=== PATIENT | female | born 1940 | race Caucasian/White ===

== ENCOUNTER 2017-10-28 10:28 | Inpatient (IN) ==
[2017-10-28] MEDS ORDERED: ACETAMINOPHEN 325 MG TABLET PO PRN (12:02)
[2017-10-28] MEDS ORDERED: NALOXONE 0.4 MG/ML VIAL IV PRN (12:02)
[2017-10-28] MEDS ORDERED: ONDANSETRON 4 MG/2 ML VIAL IV PRN (12:02)
[2017-10-28] MEDS ORDERED: HYDROmorphone 2 MG/1 ML VIAL IV PRN (12:02)
[2017-10-28 13:06] LABS: Basophils # 0.1 10*3/uL (0.0-0.2); Basophils % 1.2 % (0.0-0.8); Eosinophils # 0.3 10*3/uL (0.0-0.87); Eosinophils % 4.5 % (0.00-10.9); Hematocrit 41.8 VOL% (35.7-47.0); Hemoglobin 13.5 GM/DL (12.0-16.0); Immature Granulocytes % 0.8 %; Immature Granulocytes Absolute 0.06 #; Lymphocytes # 1.5 10*3/uL (1.4-4.0); Lymphocytes % 19.6 % (21.3-54.2); Mean Corpuscular HGB Conc 32.3 GM/DL (32-36); Mean Corpuscular Hemoglobin 30 PG (27-34); Mean Corpuscular Volume 93.3 FL (87-102); Mean Platelet Volume 9.9 FL (9.6-12.0); Monocytes # 0.5 10*3/uL (0.11-0.8); Monocytes % 6.6 % (1.7-12.7); Neutrophils # 5.1 10*3/uL (1.4-7.4); Neutrophils % 67.3 % (38.7-73.9); Platelet Count 382 T/CUMM (130-400); Red Blood Count 4.48 MC/CUMM (3.8-5.5); Red Cell Distribution Width 13.7 % (9.3-17.3); White Blood Count 7.6 T/CUMM (4-12)
[2017-10-28] MEDS: SODIUM CHLORIDE 0.45% 1,000 ML IV SCH (13:27)
[2017-10-28 13:35] LABS: Albumin 2.6 G/DL (3.4-5.0); Bilirubin,Total 1.7 MG/DL (0.2-1.0); Calcium 8.9 MG/DL (8.5-10.1); Osmolality,Calculated 281.3 MOS/KG (273-304); Potassium 3.7 MMOL/L (3.5-5.1); Total Protein 7.1 G/DL (6.4-8.3)
[2017-10-28 13:45] LABS: Albumin 2.6 G/DL (3.4-5.0); Bilirubin,Direct 1.42 MG/DL (0.0-0.20); Bilirubin,Indirect 0.4 MG/DL (0.0-1.0); Bilirubin,Total 1.8 MG/DL (0.2-1.0); Total Protein 7.2 G/DL (6.4-8.3)
[2017-10-28 13:52] LABS: INR 4.4
[2017-10-28 14:01] LABS: PT Patient Result 44.2 SECS; Partial Thromboplastin Time 46.8 SECS (0-40)
[2017-10-28 16:51] LABS: Apearance,Urine Slightly Hazy (Clear); Bilirubin,Urine Negative (Negative); Blood, Urine Small mg/dL (Negative); Glucose,Urine (UA) Negative (Negative); Ketones,Urine Negative (Negative); Mucus,Urine Occasional /LPF (Occasional); Nitrite,Urine Negative (Negative); Protein,Urine 30 MG/DL; RBC,Urine 3 /HPF (0-4); Squamous Epithelial Cell,Urine Occasional /HPF (0-10); Urine Color Amber (Yellow); Urine Specific Gravity 1.018 (1.001-1.035); WBC,Urine 19 /HPF (0-6)
[2017-10-28] MEDS: cefTRIAXone 1,000 MG in SYRINGE 1 EACH IV SCH (17:16)
[2017-10-28] MEDS: CARVEDILOL 6.25 MG TABLET PO SCH (17:16)
[2017-10-28] MEDS ORDERED: DONEPEZIL 10 MG TABLET PO SCH (18:00)
[2017-10-28] MEDS: DOCUSATE SODIUM 100 MG CAPSULE PO SCH (21:06)
[2017-10-29] MEDS: SODIUM CHLORIDE 0.45% 1,000 ML IV SCH ×3 (00:02→23:40)
[2017-10-29 06:31] LABS: INR 3.4
[2017-10-29 06:37] LABS: PT Patient Result 34.1 SECS
[2017-10-29 06:44] LABS: Albumin 2.1 G/DL (3.4-5.0); Bilirubin,Direct 0.97 MG/DL (0.0-0.20); Bilirubin,Indirect 0.6 MG/DL (0.0-1.0); Bilirubin,Total 1.6 MG/DL (0.2-1.0); Total Protein 5.9 G/DL (6.4-8.3)
[2017-10-29 06:45] LABS: Risk Ratio 5.77; VLDL CHOLESTEROL 30.2 MG/DL
[2017-10-29] MEDS: AZITHROMYCIN INJ 500 MG in SODIUM CHLORIDE 0.9% 250 ML IV SCH (09:18)
[2017-10-29] MEDS: CARVEDILOL 6.25 MG TABLET PO SCH ×2 (09:20→17:04)
[2017-10-29] MEDS: OXYBUTYNIN XL 5 MG TABLET PO SCH (09:20)
[2017-10-29] MEDS: PANTOPRAZOLE 40 MG VIAL IV SCH (09:20)
[2017-10-29] MEDS: amLODIPine 5 MG TABLET PO SCH (09:20)
[2017-10-29] MEDS: MULTIVITAMIN (CENTRUM) TABLET PO SCH (09:20)
[2017-10-29] MEDS: DOCUSATE SODIUM 100 MG CAPSULE PO SCH ×2 (09:20→20:26)
[2017-10-29] MEDS: cefTRIAXone 1,000 MG in SYRINGE 1 EACH IV SCH (20:27)
[2017-10-30 05:31] LABS: Basophils # 0.1 10*3/uL (0.0-0.2); Basophils % 1.7 % (0.0-0.8); Eosinophils # 0.2 10*3/uL (0.0-0.87); Eosinophils % 4.1 % (0.00-10.9); Hematocrit 36.5 VOL% (35.7-47.0); Hemoglobin 11.8 GM/DL (12.0-16.0); Immature Granulocytes % 1.2 %; Immature Granulocytes Absolute 0.07 #; Lymphocytes # 1.5 10*3/uL (1.4-4.0); Lymphocytes % 26.6 % (21.3-54.2); Mean Corpuscular HGB Conc 32.3 GM/DL (32-36); Mean Corpuscular Hemoglobin 30 PG (27-34); Mean Corpuscular Volume 92.9 FL (87-102); Mean Platelet Volume 10.2 FL (9.6-12.0); Monocytes # 0.4 10*3/uL (0.11-0.8); Monocytes % 7.4 % (1.7-12.7); Neutrophils # 3.4 10*3/uL (1.4-7.4); Platelet Count 336 T/CUMM (130-400); Red Blood Count 3.93 MC/CUMM (3.8-5.5); Red Cell Distribution Width 13.4 % (9.3-17.3); White Blood Count 5.8 T/CUMM (4-12)
[2017-10-30 05:40] LABS: PT Patient Result 30.2 SECS
[2017-10-30 06:20] LABS: Albumin 2.2 G/DL (3.4-5.0); Bilirubin,Direct 0.77 MG/DL (0.0-0.20); Bilirubin,Indirect 0.6 MG/DL (0.0-1.0); Bilirubin,Total 1.4 MG/DL (0.2-1.0); Calcium 8.3 MG/DL (8.5-10.1); Potassium 3.8 MMOL/L (3.5-5.1); Total Protein 5.6 G/DL (6.4-8.3)
[2017-10-30] MEDS: DOCUSATE SODIUM 100 MG CAPSULE PO SCH (09:04)
[2017-10-30] MEDS: PANTOPRAZOLE 40 MG VIAL IV SCH (09:04)
[2017-10-30] MEDS: CARVEDILOL 6.25 MG TABLET PO SCH (09:04)
[2017-10-30] MEDS: OXYBUTYNIN XL 5 MG TABLET PO SCH (09:04)
[2017-10-30] MEDS: amLODIPine 5 MG TABLET PO SCH (09:04)
[2017-10-30] MEDS: MULTIVITAMIN (CENTRUM) TABLET PO SCH (09:04)
[2017-10-30] MEDS: AZITHROMYCIN INJ 500 MG in SODIUM CHLORIDE 0.9% 250 ML IV SCH (09:08)
[2017-10-30] MEDS: SODIUM CHLORIDE 0.45% 1,000 ML IV SCH (10:42)
[2017-10-30 12:03] VITALS: BP 136/73
== END 2017-10-30 14:05 | disposition home health service (06) | DRG 444 ==
LOC: N.2E 12:16
PROVIDERS: ADMIT Family Medicine; ATTEND Family Medicine

== ENCOUNTER 2017-11-05 10:05 | Inpatient (IN) ==
[2017-11-05] MEDS ORDERED: fentaNYL 100 MCG/2 ML VIAL ONE (10:11)
[2017-11-05] MEDS ORDERED: KETAMINE 500 MG/10 ML VIAL ONE (10:11)
[2017-11-05] MEDS ORDERED: MIDAZOLAM 2 MG/2 ML VIAL ONE (10:12)
[2017-11-05] MEDS ORDERED: ONDANSETRON 4 MG/2 ML VIAL IV PRN ×2 (10:39→14:31)
[2017-11-05] MEDS ORDERED: SODIUM CHLORIDE 0.9% 1,000 ML IV SCH (11:00)
[2017-11-05 11:12] LABS: Basophils # 0.1 10*3/uL (0.0-0.2); Basophils % 1.5 % (0.0-0.8); Eosinophils # 0.3 10*3/uL (0.0-0.87); Eosinophils % 3.7 % (0.00-10.9); Hematocrit 40.4 VOL% (35.7-47.0); Hemoglobin 12.8 GM/DL (12.0-16.0); Immature Granulocytes % 0.6 %; Immature Granulocytes Absolute 0.04 #; Lymphocytes % 27.2 % (21.3-54.2); Mean Corpuscular HGB Conc 31.7 GM/DL (32-36); Mean Corpuscular Hemoglobin 30 PG (27-34); Mean Corpuscular Volume 93.5 FL (87-102); Mean Platelet Volume 9.6 FL (9.6-12.0); Monocytes # 0.4 10*3/uL (0.11-0.8); Monocytes % 6.1 % (1.7-12.7); Neutrophils # 4.4 10*3/uL (1.4-7.4); Neutrophils % 60.9 % (38.7-73.9); Platelet Count 388 T/CUMM (130-400); Red Blood Count 4.32 MC/CUMM (3.8-5.5); Red Cell Distribution Width 13.7 % (9.3-17.3); White Blood Count 7.2 T/CUMM (4-12)
[2017-11-05 11:25] LABS: INR 1.3; PT Patient Result 13.7 SECS; Partial Thromboplastin Time 27.9 SECS (0-40)
[2017-11-05] MEDS ORDERED: ALBUTEROL/IPRATROPIUM 3 ML NEB RESP TX ONE (13:15)
[2017-11-05] MEDS ORDERED: ACETAMINOPHEN 325 MG TABLET PO PRN (14:31)
[2017-11-05] MEDS ORDERED: PROMETHAZINE 25 MG/1 ML VIAL IM PRN (14:31)
[2017-11-05] MEDS ORDERED: ALBUTEROL/IPRATROPIUM 3 ML NEB RESP TX PRN (14:31)
[2017-11-05] MEDS: LACTATED RINGERS 1,000 ML IV SCH ×2 (14:47→22:38)
[2017-11-05] MEDS: cefOXitin 2,000 MG in SYRINGE 1 EACH IV SCH ×3 (16:13→22:34)
[2017-11-05] MEDS: SIMVASTATIN 20 MG TABLET PO SCH (17:50)
[2017-11-05] MEDS: DONEPEZIL 10 MG TABLET PO SCH (17:50)
[2017-11-05] MEDS: CARVEDILOL 6.25 MG TABLET PO SCH (20:38)
[2017-11-06] MEDS: cefOXitin 2,000 MG in SYRINGE 1 EACH IV SCH ×4 (04:30→22:18)
[2017-11-06] MEDS ORDERED: cefOXitin 2,000 MG in SYRINGE 1 EACH IV ONE (06:30)
[2017-11-06 06:54] LABS: Basophils # 0.1 10*3/uL (0.0-0.2); Basophils % 1.4 % (0.0-0.8); Eosinophils # 0.3 10*3/uL (0.0-0.87); Eosinophils % 3.5 % (0.00-10.9); Hematocrit 39.4 VOL% (35.7-47.0); Hemoglobin 12.9 GM/DL (12.0-16.0); Immature Granulocytes % 0.5 %; Immature Granulocytes Absolute 0.04 #; Lymphocytes # 1.9 10*3/uL (1.4-4.0); Lymphocytes % 22.4 % (21.3-54.2); Mean Corpuscular HGB Conc 32.7 GM/DL (32-36); Mean Corpuscular Hemoglobin 30 PG (27-34); Mean Corpuscular Volume 91.6 FL (87-102); Mean Platelet Volume 10.1 FL (9.6-12.0); Monocytes # 0.6 10*3/uL (0.11-0.8); Monocytes % 7.3 % (1.7-12.7); Neutrophils # 5.5 10*3/uL (1.4-7.4); Neutrophils % 64.9 % (38.7-73.9); Platelet Count 368 T/CUMM (130-400); Red Cell Distribution Width 13.5 % (9.3-17.3); White Blood Count 8.5 T/CUMM (4-12)
[2017-11-06 07:01] LABS: INR 1.2; PT Patient Result 12.9 SECS; Partial Thromboplastin Time 26.1 SECS (0-40)
[2017-11-06 07:30] LABS: Albumin 2.5 G/DL (3.4-5.0); Bilirubin,Total 1.1 MG/DL (0.2-1.0); Calcium 8.9 MG/DL (8.5-10.1); Osmolality,Calculated 284.7 MOS/KG (273-304); Potassium 4.2 MMOL/L (3.5-5.1); Total Protein 6.1 G/DL (6.4-8.3)
[2017-11-06] MEDS: CARVEDILOL 6.25 MG TABLET PO SCH ×2 (07:40→16:52)
[2017-11-06] MEDS: LACTATED RINGERS 1,000 ML IV SCH ×3 (07:40→22:19)
[2017-11-06] MEDS: OXYBUTYNIN XL 5 MG TABLET PO SCH (07:40)
[2017-11-06] MEDS: PANTOPRAZOLE 40 MG TABLET PO SCH (07:40)
[2017-11-06] MEDS: MULTIVITAMIN (CENTRUM) TABLET PO SCH (07:40)
[2017-11-06] MEDS: amLODIPine 5 MG TABLET PO SCH (07:40)
[2017-11-06] MEDS ORDERED: PANTOPRAZOLE 40 MG TABLET PO SCH (09:00)
[2017-11-06] MEDS ORDERED: TISSUE ADHESIVE 1 EACH APPLICATOR TOP ONE (10:06)
[2017-11-06] MEDS ORDERED: SUGAMMADEX 200 MG/2 ML VIAL IV ONE (10:32)
[2017-11-06] MEDS ORDERED: HYDROmorphone 2 MG/1 ML VIAL ONE (10:49)
[2017-11-06] MEDS ORDERED: ONDANSETRON 4 MG/2 ML VIAL ONE ×2 (10:49→10:56)
[2017-11-06] MEDS: HYDROmorphone 2 MG/1 ML VIAL IV PRN ×4 (10:50→23:45)
[2017-11-06] MEDS ORDERED: PROPOFOL 200 MG/20 ML VIAL IV ONE ×2 (10:55→11:11)
[2017-11-06] MEDS ORDERED: LABETALOL 20 MG/4 ML SYRINGE IV ONE (10:55)
[2017-11-06] MEDS ORDERED: KETOROLAC 30 MG/1 ML VIAL ONE (10:56)
[2017-11-06] MEDS ORDERED: SEVOFLURANE 1 UNIT/15 MINUTE INH ONE (10:56)
[2017-11-06] MEDS ORDERED: ESMOLOL 100 MG/10 ML VIAL IV ONE (10:56)
[2017-11-06] MEDS ORDERED: fentaNYL 100 MCG/2 ML VIAL ONE (10:56)
[2017-11-06] MEDS ORDERED: ACETAMINOPHEN 1,000 MG/100 ML VIAL IV ONE (10:56)
[2017-11-06] MEDS ORDERED: SUCCINYLCHOLINE 200 MG/10 ML VIAL ONE (10:57)
[2017-11-06] MEDS ORDERED: ROCURONIUM 100 MG/10 ML VIAL IV ONE (10:57)
[2017-11-06] MEDS ORDERED: LABETALOL 100 MG/20 ML VIAL IV ONE (10:57)
[2017-11-06] MEDS ORDERED: ONDANSETRON 4 MG/2 ML VIAL IV PRN (11:01)
[2017-11-06] MEDS ORDERED: LIDOCAINE 2% 5 ML VIAL ONE (11:11)
[2017-11-06] MEDS: SIMVASTATIN 20 MG TABLET PO SCH (17:06)
[2017-11-06] MEDS: DONEPEZIL 10 MG TABLET PO SCH (17:06)
[2017-11-06 18:41] LABS: Basophils # 0.1 10*3/uL (0.0-0.2); Basophils % 0.5 % (0.0-0.8); Eosinophils # 0.1 10*3/uL (0.0-0.87); Eosinophils % 0.3 % (0.00-10.9); Hemoglobin 12.2 GM/DL (12.0-16.0); Immature Granulocytes % 0.4 %; Immature Granulocytes Absolute 0.06 #; Lymphocytes # 1.4 10*3/uL (1.4-4.0); Lymphocytes % 9.2 % (21.3-54.2); Mean Corpuscular HGB Conc 32.1 GM/DL (32-36); Mean Corpuscular Hemoglobin 31 PG (27-34); Mean Platelet Volume 9.5 FL (9.6-12.0); Monocytes # 0.9 10*3/uL (0.11-0.8); Monocytes % 6.1 % (1.7-12.7); Neutrophils # 12.3 10*3/uL (1.4-7.4); Neutrophils % 83.5 % (38.7-73.9); Platelet Count 301 T/CUMM (130-400); Red Cell Distribution Width 13.4 % (9.3-17.3); White Blood Count 14.8 T/CUMM (4-12)
[2017-11-06 18:59] LABS: Calcium 8.5 MG/DL (8.5-10.1); Osmolality,Calculated 281.1 MOS/KG (273-304); Potassium 4.3 MMOL/L (3.5-5.1)
[2017-11-06 19:03] LABS: Troponin I Only < 0.015 NG/ML (0.00-0.045)
[2017-11-06] MEDS ORDERED: SODIUM CHLORIDE 0.9% 1,000 ML IV ONE (19:24)
[2017-11-06] MEDS ORDERED: ENOXAPARIN 80 MG/0.8 ML SYRINGE SUBCUT SCH (21:00)
[2017-11-06 21:46] LABS: Troponin I Only < 0.015 NG/ML (0.00-0.045)
[2017-11-06] MEDS: ENOXAPARIN 80 MG/0.8 ML SYRINGE SUBCUT SCH (22:15)
[2017-11-07 00:30] LABS: Troponin I Only < 0.015 NG/ML (0.00-0.045)
[2017-11-07] MEDS: cefOXitin 2,000 MG in SYRINGE 1 EACH IV SCH ×4 (05:01→22:28)
[2017-11-07] MEDS: HYDROmorphone 2 MG/1 ML VIAL IV PRN ×2 (05:01→22:55)
[2017-11-07 05:18] LABS: Basophils # 0.1 10*3/uL (0.0-0.2); Basophils % 0.6 % (0.0-0.8); Eosinophils # 0.1 10*3/uL (0.0-0.87); Eosinophils % 0.8 % (0.00-10.9); Hematocrit 35.4 VOL% (35.7-47.0); Hemoglobin 11.7 GM/DL (12.0-16.0); Immature Granulocytes % 0.6 %; Immature Granulocytes Absolute 0.09 #; Lymphocytes # 1.2 10*3/uL (1.4-4.0); Lymphocytes % 7.2 % (21.3-54.2); Mean Corpuscular HGB Conc 33.1 GM/DL (32-36); Mean Corpuscular Hemoglobin 31 PG (27-34); Mean Corpuscular Volume 92.4 FL (87-102); Mean Platelet Volume 10.1 FL (9.6-12.0); Monocytes # 1.4 10*3/uL (0.11-0.8); Monocytes % 8.5 % (1.7-12.7); Neutrophils # 13.2 10*3/uL (1.4-7.4); Neutrophils % 82.3 % (38.7-73.9); Platelet Count 270 T/CUMM (130-400); Red Blood Count 3.83 MC/CUMM (3.8-5.5); Red Cell Distribution Width 13.7 % (9.3-17.3); White Blood Count 16.1 T/CUMM (4-12)
[2017-11-07 05:32] LABS: Albumin 2.1 G/DL (3.4-5.0); Bilirubin,Total 0.9 MG/DL (0.2-1.0); Calcium 8.3 MG/DL (8.5-10.1); Potassium 4.2 MMOL/L (3.5-5.1); Total Protein 5.4 G/DL (6.4-8.3)
[2017-11-07] MEDS: MULTIVITAMIN (CENTRUM) TABLET PO SCH (08:30)
[2017-11-07] MEDS: CARVEDILOL 6.25 MG TABLET PO SCH ×2 (08:30→17:22)
[2017-11-07] MEDS: PANTOPRAZOLE 40 MG TABLET PO SCH (08:30)
[2017-11-07] MEDS: amLODIPine 5 MG TABLET PO SCH (08:30)
[2017-11-07] MEDS: OXYBUTYNIN XL 5 MG TABLET PO SCH (08:30)
[2017-11-07] MEDS: LACTATED RINGERS 1,000 ML IV SCH ×2 (10:55→20:22)
[2017-11-07] MEDS: SIMVASTATIN 20 MG TABLET PO SCH (17:22)
[2017-11-07] MEDS: DONEPEZIL 10 MG TABLET PO SCH (17:22)
[2017-11-07] MEDS: ENOXAPARIN 80 MG/0.8 ML SYRINGE SUBCUT SCH (22:28)
[2017-11-08] MEDS: LACTATED RINGERS 1,000 ML IV SCH ×4 (00:30→20:26)
[2017-11-08] MEDS: cefOXitin 2,000 MG in SYRINGE 1 EACH IV SCH ×5 (04:51→22:09)
[2017-11-08] MEDS: amLODIPine 5 MG TABLET PO SCH (08:44)
[2017-11-08] MEDS: MULTIVITAMIN (CENTRUM) TABLET PO SCH (08:44)
[2017-11-08] MEDS: PANTOPRAZOLE 40 MG TABLET PO SCH (08:45)
[2017-11-08] MEDS: CARVEDILOL 6.25 MG TABLET PO SCH ×2 (08:55→17:34)
[2017-11-08] MEDS: OXYBUTYNIN XL 5 MG TABLET PO SCH (10:51)
[2017-11-08] MEDS: WARFARIN 3 MG TABLET PO SCH (17:34)
[2017-11-08] MEDS: DONEPEZIL 10 MG TABLET PO SCH (17:34)
[2017-11-08] MEDS: SIMVASTATIN 20 MG TABLET PO SCH (17:34)
[2017-11-08] MEDS: ENOXAPARIN 80 MG/0.8 ML SYRINGE SUBCUT SCH (22:09)
[2017-11-09] MEDS: LACTATED RINGERS 1,000 ML IV SCH ×4 (01:00→20:45)
[2017-11-09 05:34] LABS: Basophils # 0.1 10*3/uL (0.0-0.2); Basophils % 0.8 % (0.0-0.8); Eosinophils # 0.4 10*3/uL (0.0-0.87); Eosinophils % 5.3 % (0.00-10.9); Hematocrit 32.2 VOL% (35.7-47.0); Hemoglobin 10.4 GM/DL (12.0-16.0); Immature Granulocytes % 0.7 %; Immature Granulocytes Absolute 0.06 #; Lymphocytes # 1.3 10*3/uL (1.4-4.0); Lymphocytes % 15.7 % (21.3-54.2); Mean Corpuscular HGB Conc 32.3 GM/DL (32-36); Mean Corpuscular Hemoglobin 30 PG (27-34); Mean Corpuscular Volume 93.3 FL (87-102); Mean Platelet Volume 10.1 FL (9.6-12.0); Monocytes # 0.8 10*3/uL (0.11-0.8); Monocytes % 9.9 % (1.7-12.7); Neutrophils # 5.6 10*3/uL (1.4-7.4); Neutrophils % 67.6 % (38.7-73.9); Platelet Count 240 T/CUMM (130-400); Red Blood Count 3.45 MC/CUMM (3.8-5.5); Red Cell Distribution Width 13.9 % (9.3-17.3); White Blood Count 8.3 T/CUMM (4-12)
[2017-11-09 05:45] LABS: Calcium 8.2 MG/DL (8.5-10.1); Osmolality,Calculated 287.7 MOS/KG (273-304); Potassium 4.2 MMOL/L (3.5-5.1)
[2017-11-09] MEDS: cefOXitin 2,000 MG in SYRINGE 1 EACH IV SCH (05:46)
[2017-11-09] MEDS: PANTOPRAZOLE 40 MG TABLET PO SCH (08:49)
[2017-11-09] MEDS: MULTIVITAMIN (CENTRUM) TABLET PO SCH (08:49)
[2017-11-09] MEDS: amLODIPine 5 MG TABLET PO SCH (08:49)
[2017-11-09] MEDS: OXYBUTYNIN XL 5 MG TABLET PO SCH (08:49)
[2017-11-09] MEDS: CARVEDILOL 6.25 MG TABLET PO SCH ×2 (08:49→17:46)
[2017-11-09] MEDS: cefTRIAXone 1,000 MG in SYRINGE 1 EACH IV SCH (08:52)
[2017-11-09] MEDS: FUROSEMIDE 40 MG/4 ML VIAL IV SCH (08:54)
[2017-11-09 09:07] LABS: INR 1.2; PT Patient Result 12.7 SECS
[2017-11-09] MEDS: DORNASE ALFA 2.5 MG/2.5 ML VIAL RESP TX SCH ×2 (10:58→19:15)
[2017-11-09] MEDS: WARFARIN 3 MG TABLET PO SCH (17:46)
[2017-11-09] MEDS: DONEPEZIL 10 MG TABLET PO SCH (17:46)
[2017-11-09] MEDS: SIMVASTATIN 20 MG TABLET PO SCH (17:46)
[2017-11-09] MEDS: ENOXAPARIN 80 MG/0.8 ML SYRINGE SUBCUT SCH (20:46)
[2017-11-10 04:05] LABS: Basophils # 0.1 10*3/uL (0.0-0.2); Eosinophils # 0.4 10*3/uL (0.0-0.87); Eosinophils % 5.7 % (0.00-10.9); Hematocrit 32.1 VOL% (35.7-47.0); Immature Granulocytes % 0.7 %; Immature Granulocytes Absolute 0.05 #; Lymphocytes # 1.5 10*3/uL (1.4-4.0); Lymphocytes % 21.4 % (21.3-54.2); Mean Corpuscular HGB Conc 31.2 GM/DL (32-36); Mean Corpuscular Hemoglobin 30 PG (27-34); Mean Corpuscular Volume 95.8 FL (87-102); Mean Platelet Volume 10.6 FL (9.6-12.0); Monocytes # 0.7 10*3/uL (0.11-0.8); Monocytes % 10.3 % (1.7-12.7); Neutrophils # 4.4 10*3/uL (1.4-7.4); Neutrophils % 60.9 % (38.7-73.9); Platelet Count 261 T/CUMM (130-400); Red Blood Count 3.35 MC/CUMM (3.8-5.5); Red Cell Distribution Width 13.7 % (9.3-17.3); White Blood Count 7.2 T/CUMM (4-12)
[2017-11-10 04:23] LABS: INR 1.3; PT Patient Result 13.6 SECS
[2017-11-10 04:33] LABS: Calcium 7.9 MG/DL (8.5-10.1); Osmolality,Calculated 281.1 MOS/KG (273-304); Potassium 4.5 MMOL/L (3.5-5.1)
[2017-11-10] MEDS ORDERED: WARFARIN 10 MG TABLET PO ONE ×2 (07:28→17:30)
[2017-11-10] MEDS: DORNASE ALFA 2.5 MG/2.5 ML VIAL RESP TX SCH ×2 (07:45→19:16)
[2017-11-10] MEDS: OXYBUTYNIN XL 5 MG TABLET PO SCH ×2 (09:20→11:06)
[2017-11-10] MEDS: MULTIVITAMIN (CENTRUM) TABLET PO SCH ×2 (09:20→11:06)
[2017-11-10] MEDS: CARVEDILOL 6.25 MG TABLET PO SCH ×3 (09:20→17:29)
[2017-11-10] MEDS: PANTOPRAZOLE 40 MG TABLET PO SCH ×2 (09:21→11:06)
[2017-11-10] MEDS: cefTRIAXone 1,000 MG in SYRINGE 1 EACH IV SCH (09:21)
[2017-11-10] MEDS: amLODIPine 5 MG TABLET PO SCH (09:21)
[2017-11-10] MEDS: FUROSEMIDE 40 MG/4 ML VIAL IV SCH (09:27)
[2017-11-10] MEDS: ALBUTEROL/IPRATROPIUM 3 ML NEB RESP TX SCH ×3 (11:58→19:16)
[2017-11-10 15:33] LABS: Procalcitonin, S 0.28 ng/mL (<=0.15)
[2017-11-10] MEDS: DONEPEZIL 10 MG TABLET PO SCH (17:28)
[2017-11-10] MEDS: WARFARIN 3 MG TABLET PO SCH (17:28)
[2017-11-10] MEDS: SIMVASTATIN 20 MG TABLET PO SCH (17:29)
[2017-11-10] MEDS: ENOXAPARIN 80 MG/0.8 ML SYRINGE SUBCUT SCH (21:19)
[2017-11-11] MEDS: ALBUTEROL/IPRATROPIUM 3 ML NEB RESP TX SCH ×4 (00:35→19:02)
[2017-11-11 05:11] LABS: INR 2.2
[2017-11-11] MEDS: DORNASE ALFA 2.5 MG/2.5 ML VIAL RESP TX SCH ×2 (08:07→19:07)
[2017-11-11] MEDS: CARVEDILOL 6.25 MG TABLET PO SCH ×2 (08:55→17:20)
[2017-11-11] MEDS: FUROSEMIDE 40 MG/4 ML VIAL IV SCH (08:55)
[2017-11-11] MEDS: PANTOPRAZOLE 40 MG TABLET PO SCH (08:55)
[2017-11-11] MEDS: OXYBUTYNIN XL 5 MG TABLET PO SCH (08:55)
[2017-11-11] MEDS: amLODIPine 5 MG TABLET PO SCH (08:55)
[2017-11-11] MEDS: MULTIVITAMIN (CENTRUM) TABLET PO SCH (08:55)
[2017-11-11] MEDS: cefTRIAXone 1,000 MG in SYRINGE 1 EACH IV SCH (08:58)
[2017-11-11] MEDS: DONEPEZIL 10 MG TABLET PO SCH (17:20)
[2017-11-11] MEDS: WARFARIN 3 MG TABLET PO SCH (17:20)
[2017-11-11] MEDS: SIMVASTATIN 20 MG TABLET PO SCH (17:20)
[2017-11-12] MEDS: ALBUTEROL/IPRATROPIUM 3 ML NEB RESP TX SCH ×2 (00:07→07:22)
[2017-11-12 06:21] LABS: INR 4.9
[2017-11-12 06:27] LABS: PT Patient Result 48.8 SECS
[2017-11-12] MEDS: DORNASE ALFA 2.5 MG/2.5 ML VIAL RESP TX SCH (07:22)
[2017-11-12 07:55] VITALS: BP 142/62
[2017-11-12] MEDS: CARVEDILOL 6.25 MG TABLET PO SCH (09:56)
[2017-11-12] MEDS: amLODIPine 5 MG TABLET PO SCH (09:56)
[2017-11-12] MEDS: FUROSEMIDE 40 MG/4 ML VIAL IV SCH (09:56)
[2017-11-12] MEDS: PANTOPRAZOLE 40 MG TABLET PO SCH (09:56)
[2017-11-12] MEDS: MULTIVITAMIN (CENTRUM) TABLET PO SCH (09:56)
[2017-11-12] MEDS: OXYBUTYNIN XL 5 MG TABLET PO SCH (09:56)
[2017-11-12] MEDS: cefTRIAXone 1,000 MG in SYRINGE 1 EACH IV SCH (09:58)
== END 2017-11-12 11:55 | disposition swing bed (61) | DRG 417 ==
LOC: N.5E 10:05 → N.GILAB 10:05 → N.5E 14:23 → N.TELEN 11-06 12:43
PROVIDERS: ADMIT Internal Medicine Gastroenterology; ATTEND Internal Medicine Gastroenterology
PROC: ERCPWSP (ICD-10-PCS; 2017-11-05 11:05)
PROC: LAPCHOL (2017-11-06 09:14)

== ENCOUNTER 2018-03-20 07:19 | Inpatient (IN) ==
[2018-03-26 07:28] VITALS: BP 143/71
== END 2018-03-26 12:00 | DRG 372 ==
LOC: N.ED 07:19 → N.EDINP 11:15 → N.5E 11:44
PROVIDERS: ADMIT Family Medicine; ATTEND Family Medicine

== ENCOUNTER 2018-10-24 08:20 | Inpatient (IN) ==
[2018-10-24] MEDS ORDERED: SODIUM CHLORIDE 0.9% 500 ML IV STA (08:44)
[2018-10-24 09:26] LABS: Basophils # 0.1 10*3/uL (0.0-0.2); Basophils % 0.7 % (0.0-0.8); Eosinophils # 0.4 10*3/uL (0.0-0.87); Eosinophils % 2.9 % (0.00-10.9); Hematocrit 38.9 VOL% (35.7-47.0); Immature Granulocytes % 0.5 %; Immature Granulocytes Absolute 0.08 #; Lymphocytes # 1.4 10*3/uL (1.4-4.0); Lymphocytes % 9.2 % (21.3-54.2); Mean Corpuscular HGB Conc 30.8 GM/DL (32-36); Mean Corpuscular Hemoglobin 27 PG (27-34); Mean Corpuscular Volume 86.8 FL (87-102); Mean Platelet Volume 9.4 FL (9.6-12.0); Monocytes # 0.9 10*3/uL (0.11-0.8); Monocytes % 6.3 % (1.7-12.7); Neutrophils # 11.8 10*3/uL (1.4-7.4); Neutrophils % 80.4 % (38.7-73.9); Platelet Count 354 T/CUMM (130-400); Red Blood Count 4.48 MC/CUMM (3.8-5.5); Red Cell Distribution Width 14.6 % (9.3-17.3); White Blood Count 14.7 T/CUMM (4-12)
[2018-10-24 09:34] LABS: INR 4.9
[2018-10-24 09:39] LABS: PT Patient Result 52.1 SECS
[2018-10-24 09:44] LABS: Albumin 2.1 G/DL (3.4-5.0); Bilirubin,Total 0.5 MG/DL (0.2-1.0); Calcium 8.3 MG/DL (8.5-10.1); Osmolality,Calculated 283.1 MOS/KG (273-304); Potassium 3.4 MMOL/L (3.5-5.1)
[2018-10-24] MEDS ORDERED: PHYTONADIONE 10 MG/1 ML AMP SUBCUT STA (09:52)
[2018-10-24] MEDS ORDERED: ACETAMINOPHEN 325 MG TABLET PO PRN (09:56)
[2018-10-24] MEDS ORDERED: MORPHINE 4 MG/1 ML VIAL IV PRN (09:56)
[2018-10-24] MEDS ORDERED: ONDANSETRON 4 MG/2 ML VIAL IV PRN (09:56)
[2018-10-24] MEDS ORDERED: SODIUM CHLORIDE 0.9% 1,000 ML IV PRN (10:00)
[2018-10-24] MEDS: SODIUM CHLORIDE 0.9% 1,000 ML IV SCH ×2 (10:28→21:27)
[2018-10-24 12:28] LABS: Hematocrit 37.6 VOL% (35.7-47.0); Hemoglobin 11.7 GM/DL (12.0-16.0)
[2018-10-24] MEDS ORDERED: traMADol 50 MG TABLET PO PRN (15:09)
[2018-10-24 16:47] LABS: Hematocrit 34.4 VOL% (35.7-47.0); Hemoglobin 10.7 GM/DL (12.0-16.0)
[2018-10-24] MEDS: DONEPEZIL 10 MG TABLET PO SCH (17:52)
[2018-10-24] MEDS: CARVEDILOL 6.25 MG TABLET PO SCH (17:52)
[2018-10-24] MEDS: SIMVASTATIN 20 MG TABLET PO SCH (17:52)
[2018-10-24] MEDS: MELATONIN 3 MG TABLET PO SCH (21:24)
[2018-10-24] MEDS: QUEtiapine 25 MG TABLET PO SCH (21:24)
[2018-10-24 22:08] LABS: Hematocrit 31.7 VOL% (35.7-47.0); Hemoglobin 9.9 GM/DL (12.0-16.0)
[2018-10-25 05:24] LABS: Basophils # 0.1 10*3/uL (0.0-0.2); Basophils % 0.7 % (0.0-0.8); Eosinophils # 0.6 10*3/uL (0.0-0.87); Eosinophils % 5.7 % (0.00-10.9); Hematocrit 32.8 VOL% (35.7-47.0); Hemoglobin 10.1 GM/DL (12.0-16.0); Immature Granulocytes % 0.5 %; Immature Granulocytes Absolute 0.05 #; Lymphocytes # 1.4 10*3/uL (1.4-4.0); Lymphocytes % 14.2 % (21.3-54.2); Mean Corpuscular HGB Conc 30.8 GM/DL (32-36); Mean Corpuscular Hemoglobin 26 PG (27-34); Mean Corpuscular Volume 85.9 FL (87-102); Mean Platelet Volume 9.4 FL (9.6-12.0); Monocytes # 0.7 10*3/uL (0.11-0.8); Neutrophils % 71.9 % (38.7-73.9); Platelet Count 285 T/CUMM (130-400); Red Blood Count 3.82 MC/CUMM (3.8-5.5); Red Cell Distribution Width 14.7 % (9.3-17.3); White Blood Count 9.7 T/CUMM (4-12)
[2018-10-25 05:31] LABS: INR 3.5
[2018-10-25 05:32] LABS: PT Patient Result 38.1 SECS
[2018-10-25] MEDS: PANTOPRAZOLE 40 MG TABLET PO SCH (09:42)
[2018-10-25] MEDS: CARVEDILOL 6.25 MG TABLET PO SCH ×2 (09:42→17:57)
[2018-10-25] MEDS: amLODIPine 5 MG TABLET PO SCH (09:42)
[2018-10-25] MEDS: OXYBUTYNIN XL 5 MG TABLET PO SCH (09:42)
[2018-10-25] MEDS: SODIUM CHLORIDE 0.9% 1,000 ML IV SCH ×2 (09:46→17:51)
[2018-10-25] MEDS ORDERED: metroNIDAZOLE INJ 250 MG in IV BAG 1 EACH IV SCH (17:00)
[2018-10-25] MEDS: AMPICILLIN/SULBACTAM 1,500 MG in SODIUM CHLORIDE 0.9% 100 ML IV SCH (17:51)
[2018-10-25] MEDS: DONEPEZIL 10 MG TABLET PO SCH (17:57)
[2018-10-25] MEDS: SIMVASTATIN 20 MG TABLET PO SCH (17:57)
[2018-10-25] MEDS: VANCOMYCIN 50 MG/ML 60 ML/BOTTLE PO SCH (17:57)
[2018-10-25] MEDS: QUEtiapine 25 MG TABLET PO SCH (21:49)
[2018-10-25] MEDS: MELATONIN 3 MG TABLET PO SCH (21:49)
[2018-10-26] MEDS: VANCOMYCIN 50 MG/ML 60 ML/BOTTLE PO SCH ×4 (02:08→17:19)
[2018-10-26] MEDS: AMPICILLIN/SULBACTAM 1,500 MG in SODIUM CHLORIDE 0.9% 100 ML IV SCH (03:58)
[2018-10-26] MEDS: SODIUM CHLORIDE 0.9% 1,000 ML IV SCH ×4 (03:58→22:00)
[2018-10-26 05:38] LABS: PT Patient Result 21.4 SECS
[2018-10-26] MEDS: OXYBUTYNIN XL 5 MG TABLET PO SCH (08:17)
[2018-10-26] MEDS: PANTOPRAZOLE 40 MG TABLET PO SCH (08:17)
[2018-10-26] MEDS: CARVEDILOL 6.25 MG TABLET PO SCH ×2 (08:17→17:19)
[2018-10-26] MEDS: amLODIPine 5 MG TABLET PO SCH (08:17)
[2018-10-26] MEDS ORDERED: DEXTROMETHORPHAN ER 6 MG/ML 90 ML/BOTTLE PO PRN (09:46)
[2018-10-26] MEDS: SIMVASTATIN 20 MG TABLET PO SCH (17:19)
[2018-10-26] MEDS: DONEPEZIL 10 MG TABLET PO SCH (17:19)
[2018-10-26] MEDS: QUEtiapine 25 MG TABLET PO SCH (22:35)
[2018-10-26] MEDS: MELATONIN 3 MG TABLET PO SCH (22:35)
[2018-10-27] MEDS: VANCOMYCIN 50 MG/ML 60 ML/BOTTLE PO SCH ×4 (00:44→17:29)
[2018-10-27] MEDS: SODIUM CHLORIDE 0.9% 1,000 ML IV SCH ×5 (02:00→23:58)
[2018-10-27] MEDS: OXYBUTYNIN XL 5 MG TABLET PO SCH (09:21)
[2018-10-27] MEDS: PANTOPRAZOLE 40 MG TABLET PO SCH (09:21)
[2018-10-27] MEDS: CARVEDILOL 6.25 MG TABLET PO SCH ×2 (09:21→17:28)
[2018-10-27] MEDS: amLODIPine 5 MG TABLET PO SCH (09:21)
[2018-10-27] MEDS: DONEPEZIL 10 MG TABLET PO SCH (17:28)
[2018-10-27] MEDS: SIMVASTATIN 20 MG TABLET PO SCH (17:29)
[2018-10-27] MEDS: QUEtiapine 25 MG TABLET PO SCH (20:52)
[2018-10-27] MEDS: MELATONIN 3 MG TABLET PO SCH (20:52)
[2018-10-28] MEDS: VANCOMYCIN 50 MG/ML 60 ML/BOTTLE PO SCH ×2 (00:15→06:05)
[2018-10-28 07:55] VITALS: BP 139/67
[2018-10-28] MEDS: amLODIPine 5 MG TABLET PO SCH (08:26)
[2018-10-28] MEDS: CARVEDILOL 6.25 MG TABLET PO SCH (08:26)
[2018-10-28] MEDS: OXYBUTYNIN XL 5 MG TABLET PO SCH (08:26)
[2018-10-28] MEDS: PANTOPRAZOLE 40 MG TABLET PO SCH (08:26)
== END 2018-10-28 10:08 | disposition home health service (06) | DRG 373 ==
LOC: N.ED 08:20 → N.EDINP 09:56 → N.2E 10:52
PROVIDERS: ADMIT Family Medicine; ATTEND Family Medicine

== ENCOUNTER 2018-11-29 06:58 | Inpatient (IN) ==
[2018-11-29] MEDS ORDERED: ONDANSETRON 4 MG/2 ML VIAL IV STA (07:15)
[2018-11-29] MEDS ORDERED: LOPERAMIDE 2 MG CAPSULE PO STA (07:15)
[2018-11-29] MEDS ORDERED: SODIUM CHLORIDE 0.9% 1,000 ML IV STA (07:15)
[2018-11-29 07:55] LABS: Albumin 2.3 G/DL (3.4-5.0); Bilirubin,Total 0.6 MG/DL (0.2-1.0); Calcium 8.3 MG/DL (8.5-10.1); Osmolality,Calculated 278.5 MOS/KG (273-304); Potassium 4.8 MMOL/L (3.5-5.1); Total Protein 7.1 G/DL (6.4-8.3)
[2018-11-29] MEDS ORDERED: NALOXONE 0.4 MG/ML VIAL IV PRN (08:15)
[2018-11-29] MEDS ORDERED: ACETAMINOPHEN 325 MG TABLET PO PRN (08:15)
[2018-11-29] MEDS ORDERED: ONDANSETRON 4 MG/2 ML VIAL IV PRN (08:15)
[2018-11-29 08:30] LABS: Basophils # 0.1 10*3/uL (0.0-0.2); Basophils % 0.9 % (0.0-0.8); Eosinophils # 0.1 10*3/uL (0.0-0.87); Eosinophils % 0.8 % (0.00-10.9); Hematocrit 42.6 VOL% (35.7-47.0); Hemoglobin 12.5 GM/DL (12.0-16.0); Immature Granulocytes % 0.4 %; Immature Granulocytes Absolute 0.05 #; Lymphocytes # 1.3 10*3/uL (1.4-4.0); Lymphocytes % 10.4 % (21.3-54.2); Mean Corpuscular HGB Conc 29.3 GM/DL (32-36); Mean Corpuscular Hemoglobin 26 PG (27-34); Mean Corpuscular Volume 88.4 FL (87-102); Mean Platelet Volume 9.8 FL (9.6-12.0); Monocytes # 0.7 10*3/uL (0.11-0.8); Monocytes % 5.4 % (1.7-12.7); Neutrophils # 9.9 10*3/uL (1.4-7.4); Neutrophils % 82.1 % (38.7-73.9); Platelet Count 333 T/CUMM (130-400); Red Blood Count 4.82 MC/CUMM (3.8-5.5); White Blood Count 12.1 T/CUMM (4-12)
[2018-11-29 08:41] LABS: INR 3.1
[2018-11-29 08:45] LABS: PT Patient Result 33.7 SECS
[2018-11-29] MEDS: DOCUSATE SODIUM 100 MG CAPSULE PO SCH ×2 (12:34→20:59)
[2018-11-29] MEDS: DEXTROSE 5% NACL 0.45% 1,000 ML IV SCH ×2 (12:45→16:36)
[2018-11-29] MEDS: CARVEDILOL 6.25 MG TABLET PO SCH ×2 (12:57→20:59)
[2018-11-29] MEDS: VANCOMYCIN 50 MG/ML 60 ML/BOTTLE PO SCH ×3 (12:58→23:25)
[2018-11-29] MEDS: OXYBUTYNIN XL 5 MG TABLET PO SCH (12:58)
[2018-11-29] MEDS: PANTOPRAZOLE 40 MG TABLET PO SCH (12:58)
[2018-11-29 16:45] LABS: Apearance,Urine CLOUDY (Clear); Bacteria,Urine Many /HPF (Few); Bilirubin,Urine Negative (Negative); Blood, Urine Small mg/dL (Negative); Glucose,Urine (UA) Negative (Negative); Ketones,Urine Negative (Negative); Mucus,Urine Many /LPF (Occasional); Nitrite,Urine Positive (Negative); Protein,Urine 30 MG/DL; RBC,Urine 17 /HPF (0-4); Urine Color Yellow (Yellow); Urine Specific Gravity 1.016 (1.001-1.035); Urine Urobilinogen < 2.0 EU/DL (0.2-1.0); WBC,Urine 2501 /HPF (0-6)
[2018-11-29] MEDS: WARFARIN 1 MG TABLET PO SCH (17:53)
[2018-11-29] MEDS: DONEPEZIL 10 MG TABLET PO SCH (17:53)
[2018-11-29] MEDS ORDERED: WARFARIN 3 MG TABLET PO SCH (18:00)
[2018-11-29] MEDS: MELATONIN 3 MG TABLET PO SCH (20:59)
[2018-11-29] MEDS: QUEtiapine 25 MG TABLET PO SCH (20:59)
[2018-11-29] MEDS ORDERED: busPIRone 5 MG TABLET PO SCH (21:00)
[2018-11-29] MEDS ORDERED: QUEtiapine 25 MG TABLET PO SCH (21:00)
[2018-11-30] MEDS: DEXTROSE 5% NACL 0.45% 1,000 ML IV SCH ×5 (01:32→23:03)
[2018-11-30 05:27] LABS: Calcium 7.7 MG/DL (8.5-10.1); Osmolality,Calculated 278.4 MOS/KG (273-304); Potassium 4.1 MMOL/L (3.5-5.1)
[2018-11-30] MEDS: VANCOMYCIN 50 MG/ML 60 ML/BOTTLE PO SCH ×3 (05:42→18:25)
[2018-11-30] MEDS: CARVEDILOL 6.25 MG TABLET PO SCH ×2 (10:05→21:47)
[2018-11-30] MEDS: OXYBUTYNIN XL 5 MG TABLET PO SCH (10:05)
[2018-11-30] MEDS: PANTOPRAZOLE 40 MG TABLET PO SCH (10:05)
[2018-11-30] MEDS: DOCUSATE SODIUM 100 MG CAPSULE PO SCH ×3 (10:05→21:48)
[2018-11-30] MEDS: WARFARIN 1 MG TABLET PO SCH (18:24)
[2018-11-30] MEDS: DONEPEZIL 10 MG TABLET PO SCH (18:25)
[2018-11-30] MEDS: QUEtiapine 25 MG TABLET PO SCH (21:46)
[2018-11-30] MEDS: ZINC OXIDE PASTE 113 GM TUBE TOP SCH ×2 (21:47)
[2018-11-30] MEDS: MELATONIN 3 MG TABLET PO SCH (21:47)
[2018-12-01] MEDS: VANCOMYCIN 50 MG/ML 60 ML/BOTTLE PO SCH ×4 (01:09→17:35)
[2018-12-01] MEDS: DEXTROSE 5% NACL 0.45% 1,000 ML IV SCH ×3 (07:08→22:45)
[2018-12-01 08:44] LABS: INR 4.1
[2018-12-01 08:46] LABS: PT Patient Result 43.6 SECS
[2018-12-01] MEDS: OXYBUTYNIN XL 5 MG TABLET PO SCH (10:06)
[2018-12-01] MEDS: PANTOPRAZOLE 40 MG TABLET PO SCH (10:06)
[2018-12-01] MEDS: CARVEDILOL 6.25 MG TABLET PO SCH ×2 (10:06→21:45)
[2018-12-01] MEDS: DOCUSATE SODIUM 100 MG CAPSULE PO SCH ×2 (10:06→21:45)
[2018-12-01] MEDS: ZINC OXIDE PASTE 113 GM TUBE TOP SCH ×2 (10:07→21:45)
[2018-12-01] MEDS: DONEPEZIL 10 MG TABLET PO SCH (17:35)
[2018-12-01] MEDS: MELATONIN 3 MG TABLET PO SCH (21:45)
[2018-12-01] MEDS: QUEtiapine 25 MG TABLET PO SCH (21:45)
[2018-12-02] MEDS: VANCOMYCIN 50 MG/ML 60 ML/BOTTLE PO SCH ×4 (00:23→17:36)
[2018-12-02 04:58] LABS: INR 3.8; PT Patient Result 41.1 SECS
[2018-12-02] MEDS ORDERED: FLUCONAZOLE 150 MG TABLET PO ONE (09:00)
[2018-12-02] MEDS: cefTRIAXone 1,000 MG in SYRINGE 1 EACH IV SCH (09:06)
[2018-12-02] MEDS: PANTOPRAZOLE 40 MG TABLET PO SCH (09:06)
[2018-12-02] MEDS: DOCUSATE SODIUM 100 MG CAPSULE PO SCH ×2 (09:06→21:13)
[2018-12-02] MEDS: ZINC OXIDE PASTE 113 GM TUBE TOP SCH ×2 (09:06→21:13)
[2018-12-02] MEDS: CARVEDILOL 6.25 MG TABLET PO SCH ×2 (09:06→21:13)
[2018-12-02] MEDS: OXYBUTYNIN XL 5 MG TABLET PO SCH (09:06)
[2018-12-02] MEDS: LIDOCAINE 5% PATCH TRANSDERM SCH (12:40)
[2018-12-02] MEDS: DEXTROSE 5% NACL 0.45% 1,000 ML IV SCH ×2 (12:40→16:43)
[2018-12-02] MEDS: DONEPEZIL 10 MG TABLET PO SCH (17:36)
[2018-12-02] MEDS: QUEtiapine 25 MG TABLET PO SCH (21:13)
[2018-12-02] MEDS: MELATONIN 3 MG TABLET PO SCH (21:13)
[2018-12-03] MEDS: VANCOMYCIN 50 MG/ML 60 ML/BOTTLE PO SCH ×4 (00:51→18:04)
[2018-12-03 04:35] LABS: Basophils # 0.1 10*3/uL (0.0-0.2); Basophils % 1.1 % (0.0-0.8); Eosinophils # 0.5 10*3/uL (0.0-0.87); Eosinophils % 6.9 % (0.00-10.9); Hematocrit 34.2 VOL% (35.7-47.0); Hemoglobin 10.1 GM/DL (12.0-16.0); Immature Granulocytes % 0.8 %; Immature Granulocytes Absolute 0.06 #; Lymphocytes # 1.9 10*3/uL (1.4-4.0); Lymphocytes % 25.2 % (21.3-54.2); Mean Corpuscular HGB Conc 29.5 GM/DL (32-36); Mean Corpuscular Hemoglobin 26 PG (27-34); Mean Corpuscular Volume 86.8 FL (87-102); Mean Platelet Volume 9.6 FL (9.6-12.0); Monocytes # 0.7 10*3/uL (0.11-0.8); Monocytes % 9.2 % (1.7-12.7); Neutrophils # 4.2 10*3/uL (1.4-7.4); Neutrophils % 56.8 % (38.7-73.9); Platelet Count 250 T/CUMM (130-400); Red Blood Count 3.94 MC/CUMM (3.8-5.5); Red Cell Distribution Width 16.2 % (9.3-17.3); White Blood Count 7.4 T/CUMM (4-12)
[2018-12-03 04:51] LABS: INR 3.2
[2018-12-03 04:56] LABS: PT Patient Result 34.7 SECS
[2018-12-03 04:59] LABS: Albumin 1.4 G/DL (3.4-5.0); Bilirubin,Total 0.8 MG/DL (0.2-1.0); Calcium 7.6 MG/DL (8.5-10.1); Osmolality,Calculated 275.4 MOS/KG (273-304); Potassium 3.5 MMOL/L (3.5-5.1); Total Protein 5.3 G/DL (6.4-8.3)
[2018-12-03] MEDS: DEXTROSE 5% NACL 0.45% 1,000 ML IV SCH ×3 (05:32→22:55)
[2018-12-03] MEDS: cefTRIAXone 1,000 MG in SYRINGE 1 EACH IV SCH (09:34)
[2018-12-03] MEDS: LIDOCAINE 5% PATCH TRANSDERM SCH (09:35)
[2018-12-03] MEDS: DOCUSATE SODIUM 100 MG CAPSULE PO SCH (09:36)
[2018-12-03] MEDS: ZINC OXIDE PASTE 113 GM TUBE TOP SCH ×2 (09:36→20:48)
[2018-12-03] MEDS: PANTOPRAZOLE 40 MG TABLET PO SCH (09:36)
[2018-12-03] MEDS: CARVEDILOL 6.25 MG TABLET PO SCH ×2 (09:36→20:48)
[2018-12-03] MEDS: OXYBUTYNIN XL 5 MG TABLET PO SCH (11:49)
[2018-12-03] MEDS ORDERED: MAGNESIUM SULF RIDER 1 GM in PREMIX 1 EACH IV ONE (12:31)
[2018-12-03] MEDS: DONEPEZIL 10 MG TABLET PO SCH (18:04)
[2018-12-03] MEDS: MELATONIN 3 MG TABLET PO SCH (20:48)
[2018-12-03] MEDS: QUEtiapine 25 MG TABLET PO SCH (20:48)
[2018-12-04] MEDS: VANCOMYCIN 50 MG/ML 60 ML/BOTTLE PO SCH ×5 (00:41→23:30)
[2018-12-04] MEDS: DEXTROSE 5% NACL 0.45% 1,000 ML IV SCH ×3 (07:27→17:16)
[2018-12-04] MEDS: cefTRIAXone 1,000 MG in SYRINGE 1 EACH IV SCH (09:18)
[2018-12-04] MEDS: CARVEDILOL 6.25 MG TABLET PO SCH ×2 (09:18→20:48)
[2018-12-04] MEDS: PANTOPRAZOLE 40 MG TABLET PO SCH (09:18)
[2018-12-04] MEDS: OXYBUTYNIN XL 5 MG TABLET PO SCH (09:18)
[2018-12-04] MEDS: LIDOCAINE 5% PATCH TRANSDERM SCH (09:19)
[2018-12-04] MEDS: ZINC OXIDE PASTE 113 GM TUBE TOP SCH ×2 (09:20→21:07)
[2018-12-04] MEDS: DONEPEZIL 10 MG TABLET PO SCH (17:34)
[2018-12-04] MEDS: MELATONIN 3 MG TABLET PO SCH (20:48)
[2018-12-04] MEDS: QUEtiapine 25 MG TABLET PO SCH (20:48)
[2018-12-05] MEDS: DEXTROSE 5% NACL 0.45% 1,000 ML IV SCH ×3 (02:00→17:49)
[2018-12-05 04:39] LABS: Basophils # 0.1 10*3/uL (0.0-0.2); Basophils % 1.3 % (0.0-0.8); Eosinophils # 0.5 10*3/uL (0.0-0.87); Eosinophils % 7.6 % (0.00-10.9); Hematocrit 32.3 VOL% (35.7-47.0); Hemoglobin 9.8 GM/DL (12.0-16.0); Immature Granulocytes % 1.2 %; Immature Granulocytes Absolute 0.08 #; Lymphocytes # 1.5 10*3/uL (1.4-4.0); Mean Corpuscular HGB Conc 30.3 GM/DL (32-36); Mean Corpuscular Hemoglobin 26 PG (27-34); Mean Corpuscular Volume 85.4 FL (87-102); Mean Platelet Volume 9.7 FL (9.6-12.0); Monocytes # 0.7 10*3/uL (0.11-0.8); Monocytes % 10.9 % (1.7-12.7); Neutrophils # 3.8 10*3/uL (1.4-7.4); Platelet Count 251 T/CUMM (130-400); Red Blood Count 3.78 MC/CUMM (3.8-5.5); Red Cell Distribution Width 16.1 % (9.3-17.3); White Blood Count 6.7 T/CUMM (4-12)
[2018-12-05 04:48] LABS: Calcium 7.3 MG/DL (8.5-10.1); Osmolality,Calculated 278.3 MOS/KG (273-304); Potassium 3.2 MMOL/L (3.5-5.1)
[2018-12-05] MEDS: VANCOMYCIN 50 MG/ML 60 ML/BOTTLE PO SCH ×4 (06:12→23:55)
[2018-12-05 08:25] LABS: INR 2.2
[2018-12-05] MEDS: LIDOCAINE 5% PATCH TRANSDERM SCH (08:26)
[2018-12-05] MEDS: OXYBUTYNIN XL 5 MG TABLET PO SCH (08:26)
[2018-12-05] MEDS: PANTOPRAZOLE 40 MG TABLET PO SCH (08:26)
[2018-12-05] MEDS: CARVEDILOL 6.25 MG TABLET PO SCH ×2 (08:26→20:42)
[2018-12-05 08:27] LABS: PT Patient Result 23.9 SECS
[2018-12-05] MEDS: ZINC OXIDE PASTE 113 GM TUBE TOP SCH ×2 (08:27→20:42)
[2018-12-05] MEDS ORDERED: MAGNESIUM SULF RIDER 4 GM in PREMIX 1 EACH IV PRN (11:17)
[2018-12-05] MEDS ORDERED: MAGNESIUM SULF RIDER 2 GM in PREMIX 1 EACH IV PRN (11:17)
[2018-12-05] MEDS: POTASSIUM CHLORIDE 20 MEQ TABLET PO PRN ×4 (11:43→17:50)
[2018-12-05] MEDS ORDERED: BISACODYL 5 MG TABLET PO ONE (14:00)
[2018-12-05] MEDS: DONEPEZIL 10 MG TABLET PO SCH (17:50)
[2018-12-05] MEDS ORDERED: POLYETHYLENE GLYCOL POWDER 255 GM BOTTLE PO ONE (18:00)
[2018-12-05] MEDS: MELATONIN 3 MG TABLET PO SCH (20:42)
[2018-12-05] MEDS: QUEtiapine 25 MG TABLET PO SCH (20:42)
[2018-12-06 04:58] LABS: Basophils # 0.1 10*3/uL (0.0-0.2); Basophils % 1.2 % (0.0-0.8); Eosinophils # 0.4 10*3/uL (0.0-0.87); Eosinophils % 5.5 % (0.00-10.9); Hematocrit 33.3 VOL% (35.7-47.0); Immature Granulocytes % 1.2 %; Immature Granulocytes Absolute 0.08 #; Lymphocytes # 1.5 10*3/uL (1.4-4.0); Lymphocytes % 22.2 % (21.3-54.2); Mean Corpuscular Hemoglobin 26 PG (27-34); Mean Corpuscular Volume 85.2 FL (87-102); Mean Platelet Volume 8.9 FL (9.6-12.0); Monocytes # 0.7 10*3/uL (0.11-0.8); Monocytes % 10.3 % (1.7-12.7); Neutrophils # 4.1 10*3/uL (1.4-7.4); Neutrophils % 59.6 % (38.7-73.9); Platelet Count 280 T/CUMM (130-400); Red Blood Count 3.91 MC/CUMM (3.8-5.5); Red Cell Distribution Width 16.2 % (9.3-17.3); White Blood Count 6.9 T/CUMM (4-12)
[2018-12-06] MEDS ORDERED: MAGNESIUM CITRATE 300 ML BOTTLE PO ONE (05:00)
[2018-12-06 05:26] LABS: Calcium 7.5 MG/DL (8.5-10.1); Osmolality,Calculated 279.1 MOS/KG (273-304); Potassium 4.2 MMOL/L (3.5-5.1)
[2018-12-06] MEDS: DEXTROSE 5% NACL 0.45% 1,000 ML IV SCH ×2 (05:38→23:46)
[2018-12-06] MEDS: VANCOMYCIN 50 MG/ML 60 ML/BOTTLE PO SCH ×4 (07:11→23:46)
[2018-12-06 07:33] LABS: INR 1.9; PT Patient Result 20.4 SECS
[2018-12-06] MEDS ORDERED: LIDOCAINE 2% 5 ML VIAL ONE (09:00)
[2018-12-06] MEDS ORDERED: PROPOFOL 200 MG/20 ML VIAL IV ONE (09:00)
[2018-12-06] MEDS: ZINC OXIDE PASTE 113 GM TUBE TOP SCH ×2 (10:46→20:48)
[2018-12-06] MEDS: LIDOCAINE 5% PATCH TRANSDERM SCH (10:46)
[2018-12-06] MEDS: CARVEDILOL 6.25 MG TABLET PO SCH ×2 (13:32→20:45)
[2018-12-06] MEDS: PANTOPRAZOLE 40 MG TABLET PO SCH (14:03)
[2018-12-06] MEDS: OXYBUTYNIN XL 5 MG TABLET PO SCH (14:03)
[2018-12-06] MEDS: DONEPEZIL 10 MG TABLET PO SCH (17:05)
[2018-12-06] MEDS: MELATONIN 3 MG TABLET PO SCH (20:45)
[2018-12-06] MEDS: QUEtiapine 25 MG TABLET PO SCH (20:46)
[2018-12-07 04:52] LABS: INR 1.8; PT Patient Result 19.4 SECS
[2018-12-07] MEDS: VANCOMYCIN 50 MG/ML 60 ML/BOTTLE PO SCH ×3 (05:47→17:56)
[2018-12-07] MEDS: PANTOPRAZOLE 40 MG TABLET PO SCH (09:05)
[2018-12-07] MEDS: LIDOCAINE 5% PATCH TRANSDERM SCH (09:05)
[2018-12-07] MEDS: OXYBUTYNIN XL 5 MG TABLET PO SCH (09:05)
[2018-12-07] MEDS: CARVEDILOL 6.25 MG TABLET PO SCH ×2 (09:05→20:58)
[2018-12-07] MEDS: ZINC OXIDE PASTE 113 GM TUBE TOP SCH ×2 (09:09→22:54)
[2018-12-07] MEDS: DEXTROSE 5% NACL 0.45% 1,000 ML IV SCH ×3 (09:28→23:15)
[2018-12-07] MEDS ORDERED: TUBERCULIN SKIN TEST 0.1 ML SYRINGE INTRADERM ONE (11:22)
[2018-12-07] MEDS: WARFARIN 1 MG TABLET PO SCH (17:55)
[2018-12-07] MEDS: DONEPEZIL 10 MG TABLET PO SCH (17:56)
[2018-12-07] MEDS: MELATONIN 3 MG TABLET PO SCH (20:58)
[2018-12-07] MEDS: QUEtiapine 25 MG TABLET PO SCH (20:58)
[2018-12-08] MEDS: VANCOMYCIN 50 MG/ML 60 ML/BOTTLE PO SCH ×2 (00:07→05:37)
[2018-12-08] MEDS: ZINC OXIDE PASTE 113 GM TUBE TOP SCH (09:08)
[2018-12-08] MEDS: LIDOCAINE 5% PATCH TRANSDERM SCH (09:08)
[2018-12-08] MEDS: PANTOPRAZOLE 40 MG TABLET PO SCH (09:08)
[2018-12-08] MEDS: OXYBUTYNIN XL 5 MG TABLET PO SCH (09:08)
[2018-12-08] MEDS: CARVEDILOL 6.25 MG TABLET PO SCH (09:08)
[2018-12-08 11:16] VITALS: BP 125/68
== END 2018-12-08 11:55 | disposition swing bed (61) | DRG 372 ==
LOC: EDBD → EDUNIT# → N.ED 06:58 → N.EDINP 08:15 → N.5E 14:02
PROVIDERS: ADMIT Family Medicine; ATTEND Family Medicine

== ENCOUNTER 2020-04-02 02:37 | Inpatient (IN) ==
[2020-04-02] MEDS ORDERED: ONDANSETRON 4 MG/2 ML VIAL ONE ×2 (04:14→15:01)
[2020-04-02] MEDS ORDERED: MORPHINE 4 MG/1 ML VIAL ONE (04:14)
[2020-04-02] MEDS ORDERED: MORPHINE 4 MG/1 ML VIAL IV STA ×2 (04:21→04:40)
[2020-04-02] MEDS ORDERED: ONDANSETRON 4 MG/2 ML VIAL IV ONE (04:21)
[2020-04-02] MEDS ORDERED: ONDANSETRON 4 MG/2 ML VIAL IV PRN (04:29)
[2020-04-02] MEDS ORDERED: MORPHINE 4 MG/1 ML VIAL IV PRN (04:29)
[2020-04-02 05:00] LABS: Basophils # 0.1 10*3/uL (0.0-0.2); Basophils % 0.6 % (0.0-0.8); Eosinophils # 0.3 10*3/uL (0.0-0.87); Eosinophils % 2.6 % (0.00-10.9); Hematocrit 38.1 VOL% (35.7-47.0); Hemoglobin 11.5 GM/DL (12.0-16.0); Hgb & Hct Comparison OK; Immature Granulocytes % 0.6 %; Immature Granulocytes Absolute 0.07 #; Lymphocytes # 1.7 10*3/uL (1.4-4.0); Lymphocytes % 13.8 % (21.3-54.2); Mean Corpuscular HGB Conc 30.2 GM/DL (32-36); Mean Corpuscular Hemoglobin 24 PG (27-34); Mean Corpuscular Volume 78.9 FL (87-102); Monocytes # 0.7 10*3/uL (0.11-0.8); Monocytes % 5.8 % (1.7-12.7); Neutrophils # 9.2 10*3/uL (1.4-7.4); Neutrophils % 76.6 % (38.7-73.9); Platelet Count 250 T/CUMM (130-400)
[2020-04-02 05:05] LABS: INR 2.8; PT Patient Result 28.9 SECS (9.8-11.9); Partial Thromboplastin Time 34.8 SECS (23.9-33.8)
[2020-04-02 05:10] LABS: Alanine Aminotransferase 18 U/L (13-56); Albumin/Globulin Ratio 0.7 RATIO (1.1-2.2); Alkaline Phosphatase 109 U/L (45-117); Anion Gap 8.2 MMOL/L (5.0-15.0); Aspartate Amino Transferase 21 U/L (0-37); Bilirubin,Total < 0.39 MG/DL (0.2-1.0); Blood Urea Nitrogen 18 MG/DL (7-18); Carbon Dioxide 23 MMOL/L (21-32); Chloride 114 MMOL/L (98-107); Estimated Glom Filtration Rate 52 ML/MIN; Globulin 4.1 G/DL (2.3-3.5); Osmolality,Calculated 282.3 MOS/KG (273-304); Potassium 4.2 MMOL/L (3.5-5.1); Sodium 141 MMOL/L (136-145)
[2020-04-02 05:13] LABS: Apearance,Urine CLOUDY (Clear); Bacteria,Urine Many /HPF (Few); Bilirubin,Urine Negative (Negative); Blood, Urine Small mg/dL (Negative); Glucose,Urine (UA) Negative (Negative); Ketones,Urine Negative (Negative); Mucus,Urine Occasional /LPF (Occasional); Nitrite,Urine Negative (Negative); Protein,Urine 30 MG/DL; RBC,Urine 3 /HPF (0-4); Urine Color Yellow (Yellow); Urine Specific Gravity 1.017 (1.001-1.035); Urine Urobilinogen < 2.0 EU/DL (0.2-1.0); WBC,Urine 55 /HPF (0-6)
[2020-04-02] MEDS ORDERED: cefTRIAXone 1,000 MG in SODIUM CHLORIDE 0.9% 100 ML IV STA (05:20)
[2020-04-02] MEDS: SODIUM CHLORIDE 0.9% 1,000 ML IV SCH ×2 (05:40→18:00)
[2020-04-02] MEDS: cefTRIAXone 1,000 MG in SYRINGE 1 EACH IV SCH (05:44)
[2020-04-02] MEDS ORDERED: SODIUM CHLORIDE 0.9% 1,000 ML IV PRN ×3 (07:02→16:52)
[2020-04-02] MEDS: carvediloL 6.25 MG TABLET PO SCH ×2 (08:42→22:45)
[2020-04-02] MEDS: amLODIPine 5 MG TABLET PO SCH (08:42)
[2020-04-02] MEDS ORDERED: PANTOPRAZOLE 40 MG VIAL IV SCH (09:00)
[2020-04-02] MEDS: OXYBUTYNIN XL 5 MG TABLET PO SCH (09:34)
[2020-04-02 10:52] LABS: INR 1.6; PT Patient Result 17.2 SECS (9.8-11.9)
[2020-04-02] MEDS ORDERED: ceFAZolin 1,000 MG VIAL ONE (12:04)
[2020-04-02] MEDS ORDERED: MAGNESIUM HYDROXIDE SUSP 30 ML UDCUP PO PRN (12:56)
[2020-04-02] MEDS ORDERED: LACTULOSE 20 GM/30 ML UDCUP PO PRN (12:56)
[2020-04-02] MEDS ORDERED: BISACODYL 10 MG SUPP RECTAL PRN (12:56)
[2020-04-02] MEDS ORDERED: diphenhydrAMINE CAP 25 MG CAPSULE PO PRN (12:56)
[2020-04-02] MEDS ORDERED: TEMAZEPAM 7.5 MG CAPSULE PO PRN (12:56)
[2020-04-02] MEDS ORDERED: PHENYLEPHRINE DRIP 40 MG/250 ML PREMIX IV ONE (13:19)
[2020-04-02] MEDS ORDERED: ALBUMIN 5% 12.5 GM/250 ML VIAL IV ONE ×2 (13:23→15:01)
[2020-04-02 13:57] LABS: ABG Base Excess -15.9 MMOL/L (-2.5-2.5); ABG HCO3 12.3 MMOL/L (20-26); ABG Oxygen Saturation 99.3 % (95-100)
[2020-04-02 13:59] LABS: Albumin/Globulin Ratio 0.8 RATIO (1.1-2.2); Anion Gap 12.7 MMOL/L (5.0-15.0); Bilirubin,Total 0.4 MG/DL (0.2-1.0); Globulin 3.5 G/DL (2.3-3.5); Potassium 4.7 MMOL/L (3.5-5.1)
[2020-04-02 14:03] LABS: Basophils # 0.1 10*3/uL (0.0-0.2); Basophils % 0.5 % (0.0-0.8); Eosinophils # 0.1 10*3/uL (0.0-0.87); Eosinophils % 0.7 % (0.00-10.9); Hematocrit 33.1 VOL% (35.7-47.0); Hemoglobin 9.8 GM/DL (12.0-16.0); Hgb & Hct Comparison OK; Immature Granulocytes % 0.9 %; Immature Granulocytes Absolute 0.15 #; Lymphocytes # 3.8 10*3/uL (1.4-4.0); Lymphocytes % 22.6 % (21.3-54.2); Mean Corpuscular HGB Conc 29.6 GM/DL (32-36); Mean Corpuscular Hemoglobin 24 PG (27-34); Mean Corpuscular Volume 81.5 FL (87-102); Monocytes # 1.1 10*3/uL (0.11-0.8); Monocytes % 6.8 % (1.7-12.7); Neutrophils # 11.5 10*3/uL (1.4-7.4); Neutrophils % 68.5 % (38.7-73.9); Platelet Count 212 T/CUMM (130-400)
[2020-04-02] MEDS ORDERED: LIDOCAINE 2% 5 ML VIAL ONE (14:59)
[2020-04-02] MEDS ORDERED: SEVOFLURANE 1 UNIT/15 MINUTE INH ONE (14:59)
[2020-04-02] MEDS ORDERED: PHENYLEPHRINE 1 MG/10 ML SYRINGE IV ONE (15:00)
[2020-04-02] MEDS ORDERED: ETOMIDATE 40 MG/20 ML VIAL IV ONE (15:00)
[2020-04-02] MEDS ORDERED: SUCCINYLCHOLINE 200 MG/10 ML VIAL ONE (15:00)
[2020-04-02] MEDS ORDERED: fentaNYL 100 MCG/2 ML VIAL ONE (15:00)
[2020-04-02] MEDS ORDERED: DEXAMETHASONE 4 MG/1 ML VIAL ONE (15:01)
[2020-04-02] MEDS ORDERED: GLYCOPYRROLATE 0.4 MG/2 ML VIAL ONE (15:02)
[2020-04-02] MEDS ORDERED: NEOSTIGMINE 10 MG/10 ML VIAL ONE (15:02)
[2020-04-02] MEDS ORDERED: SODIUM CHLORIDE 0.9% 1,000 ML IV ONE ×2 (15:02→16:51)
[2020-04-02] MEDS ORDERED: METOPROLOL TARTRATE 5 MG/5 ML VIAL IV ONE (15:02)
[2020-04-02] MEDS ORDERED: ROCURONIUM 100 MG/10 ML VIAL IV ONE (15:02)
[2020-04-02] MEDS ORDERED: ACETAMINOPHEN 1,000 MG/100 ML VIAL IV ONE (15:02)
[2020-04-02] MEDS ORDERED: PHENYLEPHRINE DRIP 40 MG/250 ML PREMIX IV PRN (15:30)
[2020-04-02 15:37] LABS: Allen Test Positive; Amb Air Removed From Sample? Yes; Chart Checked? Yes; Duration of Pressure (Mins) 5; Number of Venipunct Attempts 1; Patient on Anticoagulant? No; Pt O2 Delivery Device Ventilator; Puncture Site Right Radial; Sample Placed on Ice? Yes
[2020-04-02 15:44] LABS: ABG Base Excess -2.4 MMOL/L (-2.5-2.5); ABG PH 7.349 (7.35-7.45); ABG TCO2 24.4 MMOL/L (23-27)
[2020-04-02 17:14] LABS: Hematocrit 30.3 VOL% (35.7-47.0); Hemoglobin 8.8 GM/DL (12.0-16.0); Hgb & Hct Comparison OK
[2020-04-02] MEDS: DONEPEZIL 10 MG TABLET PO SCH (20:57)
[2020-04-02] MEDS: QUEtiapine 25 MG TABLET PO SCH (20:57)
[2020-04-02] MEDS: SIMVASTATIN 20 MG TABLET PO SCH (20:57)
[2020-04-02] MEDS: PANTOPRAZOLE 40 MG VIAL IV SCH (20:57)
[2020-04-02] MEDS: DOCUSATE SODIUM 100 MG CAPSULE PO SCH (20:59)
[2020-04-02 23:20] LABS: Hematocrit 35.1 VOL% (35.7-47.0); Hemoglobin 10.7 GM/DL (12.0-16.0); Hgb & Hct Comparison OK
[2020-04-03] MEDS: SODIUM CHLORIDE 0.9% 1,000 ML IV SCH ×4 (01:15→23:21)
[2020-04-03] MEDS: MELATONIN 3 MG TABLET PO SCH ×2 (01:55→21:02)
[2020-04-03 04:33] LABS: Basophils % 0.1 % (0.0-0.8); Hematocrit 35.8 VOL% (35.7-47.0); Hemoglobin 10.9 GM/DL (12.0-16.0); Hgb & Hct Comparison OK; Immature Granulocytes % 0.4 %; Immature Granulocytes Absolute 0.06 #; Lymphocytes # 0.7 10*3/uL (1.4-4.0); Mean Corpuscular HGB Conc 30.4 GM/DL (32-36); Mean Corpuscular Hemoglobin 26 PG (27-34); Mean Corpuscular Volume 84.2 FL (87-102); Monocytes # 0.8 10*3/uL (0.11-0.8); Monocytes % 5.3 % (1.7-12.7); Neutrophils # 13.1 10*3/uL (1.4-7.4); Neutrophils % 89.2 % (38.7-73.9); Platelet Count 142 T/CUMM (130-400)
[2020-04-03 04:52] LABS: ABG Base Excess -2.3 MMOL/L (-2.5-2.5); ABG HCO3 22.1 MMOL/L (20-26); ABG Oxygen Saturation 98.6 % (95-100); ABG PH 7.398 (7.35-7.45); ABG TCO2 23.2 MMOL/L (23-27); Allen Test Positive; Amb Air Removed From Sample? Yes; Chart Checked? Yes; Duration of Pressure (Mins) 5; Number of Venipunct Attempts 1; Pt O2 Delivery Device Ventilator; Puncture Site Left Radial; Sample Placed on Ice? Yes
[2020-04-03 04:52] LABS: Albumin/Globulin Ratio 0.8 RATIO (1.1-2.2); Globulin 3.2 G/DL (2.3-3.5); Osmolality,Calculated 292.6 MOS/KG (273-304)
[2020-04-03] MEDS: cefTRIAXone 1,000 MG in SYRINGE 1 EACH IV SCH (07:11)
[2020-04-03] MEDS: PANTOPRAZOLE 40 MG VIAL IV SCH ×2 (08:28→21:04)
[2020-04-03] MEDS: OXYBUTYNIN XL 5 MG TABLET PO SCH (09:34)
[2020-04-03] MEDS: carvediloL 6.25 MG TABLET PO SCH ×2 (09:34→21:02)
[2020-04-03] MEDS: DOCUSATE SODIUM 100 MG CAPSULE PO SCH ×2 (09:34→21:04)
[2020-04-03] MEDS: amLODIPine 5 MG TABLET PO SCH (09:34)
[2020-04-03] MEDS ORDERED: SODIUM CHLORIDE 0.9% 1,000 ML IV SCH (10:00)
[2020-04-03] MEDS: MORPHINE 4 MG/1 ML VIAL IV PRN (16:26)
[2020-04-03] MEDS: DONEPEZIL 10 MG TABLET PO SCH (21:02)
[2020-04-03] MEDS: SIMVASTATIN 20 MG TABLET PO SCH (21:02)
[2020-04-03] MEDS: QUEtiapine 25 MG TABLET PO SCH (21:03)
[2020-04-04] MEDS: SODIUM CHLORIDE 0.9% 1,000 ML IV SCH ×2 (00:10→06:32)
[2020-04-04 05:03] LABS: Basophils % 0.2 % (0.0-0.8); Eosinophils # 0.3 10*3/uL (0.0-0.87); Eosinophils % 2.9 % (0.00-10.9); Hematocrit 31.9 VOL% (35.7-47.0); Hemoglobin 9.8 GM/DL (12.0-16.0); Hgb & Hct Comparison OK; Immature Granulocytes % 0.5 %; Immature Granulocytes Absolute 0.05 #; Lymphocytes # 0.8 10*3/uL (1.4-4.0); Lymphocytes % 8.7 % (21.3-54.2); Mean Corpuscular HGB Conc 30.7 GM/DL (32-36); Mean Corpuscular Hemoglobin 26 PG (27-34); Mean Corpuscular Volume 83.1 FL (87-102); Monocytes # 0.6 10*3/uL (0.11-0.8); Monocytes % 6.1 % (1.7-12.7); Neutrophils # 7.7 10*3/uL (1.4-7.4); Neutrophils % 81.6 % (38.7-73.9); Platelet Count 127 T/CUMM (130-400)
[2020-04-04 05:13] LABS: Anion Gap 6.9 MMOL/L (5.0-15.0); Osmolality,Calculated 294.4 MOS/KG (273-304); Potassium 3.9 MMOL/L (3.5-5.1)
[2020-04-04] MEDS: cefTRIAXone 1,000 MG in SYRINGE 1 EACH IV SCH (05:20)
[2020-04-04] MEDS: PANTOPRAZOLE 40 MG VIAL IV SCH ×2 (08:00→21:07)
[2020-04-04] MEDS: carvediloL 6.25 MG TABLET PO SCH ×2 (08:01→21:07)
[2020-04-04] MEDS: amLODIPine 5 MG TABLET PO SCH (08:01)
[2020-04-04] MEDS: OXYBUTYNIN XL 5 MG TABLET PO SCH (08:01)
[2020-04-04] MEDS: DOCUSATE SODIUM 100 MG CAPSULE PO SCH ×2 (08:01→21:07)
[2020-04-04] MEDS ORDERED: VANCOMYCIN INJ 1,500 MG in SODIUM CHLORIDE 0.9% 500 ML IV SCH (08:30)
[2020-04-04] MEDS: MORPHINE 4 MG/1 ML VIAL IV PRN (14:05)
[2020-04-04] MEDS: QUEtiapine 25 MG TABLET PO SCH (21:07)
[2020-04-04] MEDS: DONEPEZIL 10 MG TABLET PO SCH (21:07)
[2020-04-04] MEDS: MELATONIN 3 MG TABLET PO SCH (21:07)
[2020-04-04] MEDS: SIMVASTATIN 20 MG TABLET PO SCH (21:07)
[2020-04-05 06:26] LABS: Basophils # 0.1 10*3/uL (0.0-0.2); Basophils % 0.7 % (0.0-0.8); Eosinophils # 0.3 10*3/uL (0.0-0.87); Eosinophils % 3.7 % (0.00-10.9); Hematocrit 31.8 VOL% (35.7-47.0); Hemoglobin 9.7 GM/DL (12.0-16.0); Hgb & Hct Comparison OK; Immature Granulocytes Absolute 0.07 #; Lymphocytes # 0.8 10*3/uL (1.4-4.0); Lymphocytes % 11.7 % (21.3-54.2); Mean Corpuscular HGB Conc 30.5 GM/DL (32-36); Mean Corpuscular Hemoglobin 26 PG (27-34); Mean Corpuscular Volume 83.7 FL (87-102); Monocytes # 0.4 10*3/uL (0.11-0.8); Monocytes % 6.1 % (1.7-12.7); Neutrophils # 5.4 10*3/uL (1.4-7.4); Neutrophils % 76.8 % (38.7-73.9); Platelet Count 110 T/CUMM (130-400)
[2020-04-05] MEDS: cefTRIAXone 1,000 MG in SYRINGE 1 EACH IV SCH (06:34)
[2020-04-05 06:50] LABS: Anion Gap 9.7 MMOL/L (5.0-15.0); Osmolality,Calculated 293.4 MOS/KG (273-304); Potassium 3.7 MMOL/L (3.5-5.1)
[2020-04-05] MEDS: amLODIPine 5 MG TABLET PO SCH (09:38)
[2020-04-05] MEDS: carvediloL 6.25 MG TABLET PO SCH ×2 (09:38→21:12)
[2020-04-05] MEDS: OXYBUTYNIN XL 5 MG TABLET PO SCH (09:38)
[2020-04-05] MEDS: DOCUSATE SODIUM 100 MG CAPSULE PO SCH ×2 (09:38→21:13)
[2020-04-05] MEDS: PANTOPRAZOLE 40 MG VIAL IV SCH ×2 (09:38→21:12)
[2020-04-05] MEDS: DONEPEZIL 10 MG TABLET PO SCH (21:12)
[2020-04-05] MEDS: SIMVASTATIN 20 MG TABLET PO SCH (21:13)
[2020-04-05] MEDS: MELATONIN 3 MG TABLET PO SCH (21:13)
[2020-04-05] MEDS: QUEtiapine 25 MG TABLET PO SCH (21:13)
[2020-04-06] MEDS ORDERED: BISACODYL 10 MG SUPP RECTAL ONE (07:30)
[2020-04-06] MEDS: carvediloL 6.25 MG TABLET PO SCH ×2 (08:29→21:02)
[2020-04-06] MEDS: OXYBUTYNIN XL 5 MG TABLET PO SCH (08:29)
[2020-04-06] MEDS: amLODIPine 5 MG TABLET PO SCH (08:29)
[2020-04-06] MEDS: DOCUSATE SODIUM 100 MG CAPSULE PO SCH ×2 (08:29→21:02)
[2020-04-06] MEDS: PANTOPRAZOLE 40 MG VIAL IV SCH ×2 (08:29→21:03)
[2020-04-06] MEDS ORDERED: WARFARIN 1 MG TABLET PO SCH (18:00)
[2020-04-06] MEDS: DONEPEZIL 10 MG TABLET PO SCH (21:02)
[2020-04-06] MEDS: QUEtiapine 25 MG TABLET PO SCH (21:02)
[2020-04-06] MEDS: MELATONIN 3 MG TABLET PO SCH (21:02)
[2020-04-06] MEDS: SIMVASTATIN 20 MG TABLET PO SCH (21:02)
[2020-04-07] MEDS: amLODIPine 5 MG TABLET PO SCH (09:14)
[2020-04-07] MEDS: carvediloL 6.25 MG TABLET PO SCH ×2 (09:14→21:22)
[2020-04-07] MEDS: OXYBUTYNIN XL 5 MG TABLET PO SCH (09:18)
[2020-04-07] MEDS: PANTOPRAZOLE 40 MG VIAL IV SCH ×2 (09:18→21:23)
[2020-04-07] MEDS: DOCUSATE SODIUM 100 MG CAPSULE PO SCH ×2 (09:18→21:22)
[2020-04-07] MEDS: WARFARIN 1 MG TABLET PO SCH (17:13)
[2020-04-07] MEDS: DONEPEZIL 10 MG TABLET PO SCH (21:22)
[2020-04-07] MEDS: SIMVASTATIN 20 MG TABLET PO SCH (21:22)
[2020-04-07] MEDS: MELATONIN 3 MG TABLET PO SCH (21:22)
[2020-04-07] MEDS: QUEtiapine 25 MG TABLET PO SCH (21:23)
[2020-04-08 06:25] LABS: Basophils # 0.1 10*3/uL (0.0-0.2); Basophils % 0.7 % (0.0-0.8); Eosinophils # 0.5 10*3/uL (0.0-0.87); Eosinophils % 7.2 % (0.00-10.9); Hematocrit 31.7 VOL% (35.7-47.0); Hgb & Hct Comparison OK; Immature Granulocytes % 1.9 %; Immature Granulocytes Absolute 0.13 #; Lymphocytes # 1.6 10*3/uL (1.4-4.0); Lymphocytes % 23.3 % (21.3-54.2); Mean Corpuscular HGB Conc 31.5 GM/DL (32-36); Mean Corpuscular Hemoglobin 26 PG (27-34); Mean Corpuscular Volume 82.3 FL (87-102); Monocytes # 0.8 10*3/uL (0.11-0.8); Monocytes % 11.3 % (1.7-12.7); NRBC # 0.02 10*3/uL; Neutrophils # 3.8 10*3/uL (1.4-7.4); Neutrophils % 55.6 % (38.7-73.9); Nucleated Red Blood Cells % 0.3 /100WBC; Platelet Count 165 T/CUMM (130-400)
[2020-04-08 06:38] LABS: INR 1.6; PT Patient Result 16.9 SECS (9.8-11.9)
[2020-04-08 06:54] LABS: Albumin/Globulin Ratio 0.5 RATIO (1.1-2.2); Anion Gap 10.3 MMOL/L (5.0-15.0); Bilirubin,Total 1.5 MG/DL (0.2-1.0); Globulin 3.6 G/DL (2.3-3.5); Osmolality,Calculated 287.7 MOS/KG (273-304); Potassium 3.3 MMOL/L (3.5-5.1)
[2020-04-08 07:02] LABS: Platelet Estimate Normal
[2020-04-08] MEDS: carvediloL 6.25 MG TABLET PO SCH ×2 (08:52→21:51)
[2020-04-08] MEDS: amLODIPine 5 MG TABLET PO SCH (08:53)
[2020-04-08] MEDS: OXYBUTYNIN XL 5 MG TABLET PO SCH (08:56)
[2020-04-08] MEDS: DOCUSATE SODIUM 100 MG CAPSULE PO SCH ×2 (08:56→21:51)
[2020-04-08] MEDS: PANTOPRAZOLE 40 MG VIAL IV SCH ×2 (08:56→21:52)
[2020-04-08] MEDS: WARFARIN 1 MG TABLET PO SCH (17:41)
[2020-04-08] MEDS: DONEPEZIL 10 MG TABLET PO SCH (21:51)
[2020-04-08] MEDS: SIMVASTATIN 20 MG TABLET PO SCH (21:51)
[2020-04-08] MEDS: QUEtiapine 25 MG TABLET PO SCH (21:51)
[2020-04-08] MEDS: MELATONIN 3 MG TABLET PO SCH (21:51)
[2020-04-09 08:56] LABS: INR 1.5; PT Patient Result 15.8 SECS (9.8-11.9)
[2020-04-09] MEDS: carvediloL 6.25 MG TABLET PO SCH (10:13)
[2020-04-09] MEDS: DOCUSATE SODIUM 100 MG CAPSULE PO SCH (10:13)
[2020-04-09] MEDS: OXYBUTYNIN XL 5 MG TABLET PO SCH (10:13)
[2020-04-09] MEDS: PANTOPRAZOLE 40 MG VIAL IV SCH (10:13)
[2020-04-09] MEDS: amLODIPine 5 MG TABLET PO SCH (10:13)
[2020-04-09 11:08] VITALS: BP 131/65
== END 2020-04-09 12:05 ==
LOC: EDUNIT# → EDBD → N.EDINP 02:37 → N.ED 02:37 → N.ICU 05:22 → SUATTDRO 12:56 → N.3E 04-04 12:42
PROVIDERS: ADMIT Family Medicine; ATTEND Family Medicine

== ENCOUNTER 2020-07-25 15:24 | Inpatient (IN) ==
[2020-07-25 17:24] LABS: Basophils % 0.3 % (0.0-0.8); Eosinophils % 0.1 % (0.00-10.9); Hematocrit 51.7 VOL% (35.7-47.0); Hemoglobin 15.8 GM/DL (12.0-16.0); Immature Granulocytes % 0.6 %; Immature Granulocytes Absolute 0.07 #; Lymphocytes # 1.7 10*3/uL (1.4-4.0); Lymphocytes % 15.1 % (21.3-54.2); Mean Corpuscular HGB Conc 30.6 GM/DL (32-36); Mean Corpuscular Volume 86.6 FL (87-102); Mean Platelet Volume 10.6 FL (9.6-12.0); Monocytes % 5.7 % (1.7-12.7); Neutrophils % 78.2 % (38.7-73.9); Platelet Count 221 T/CUMM (130-400); Red Blood Count 5.97 MC/CUMM (3.8-5.5); Red Cell Distribution Width 16.6 % (9.3-17.3); White Blood Count 11.1 T/CUMM (4-12)
[2020-07-25 17:35] LABS: Bilirubin,Urine Negative (Negative); Blood, Urine Negative (Negative); Glucose,Urine (UA) Negative (Negative); Ketones,Urine Negative (Negative); Mucus,Urine Occasional /LPF (Occasional); Nitrite,Urine Negative (Negative); Protein,Urine Negative; RBC,Urine 2 /HPF (0-4); Squamous Epithelial Cell,Urine Occasional /HPF (0-10); Urine Appearance CLOUDY (Clear); Urine Color Amber (Yellow); WBC,Urine 2 /HPF (0-6)
[2020-07-25 17:45] LABS: Albumin 2.8 G/DL (3.4-5.0); Bilirubin,Total 0.5 MG/DL (0.2-1.0); Calcium 9.1 MG/DL (8.5-10.1); Ferritin 237.6 ng/ml (8-252); Osmolality,Calculated 339.9 MOS/KG (273-304); Potassium 4.1 MMOL/L (3.5-5.1); Total Protein 8.9 G/DL (6.4-8.3)
[2020-07-25] MEDS ORDERED: LORATADINE 10 MG TABLET PO STA (18:31)
[2020-07-25] MEDS ORDERED: ONDANSETRON 4 MG/2 ML VIAL IV PRN (18:31)
[2020-07-25] MEDS ORDERED: AZITHROMYCIN INJ 500 MG in SODIUM CHLORIDE 0.9% 250 ML IV STA (18:31)
[2020-07-25] MEDS ORDERED: ACETAMINOPHEN 325 MG TABLET PO PRN (18:31)
[2020-07-25] MEDS ORDERED: ENOXAPARIN 30 MG/0.3 ML SYRINGE SUBCUT SCH (21:00)
[2020-07-25] MEDS: LACTATED RINGERS 1,000 ML IV SCH ×2 (21:39)
[2020-07-25] MEDS: FAMOTIDINE 20 MG TABLET PO SCH (21:47)
[2020-07-26] MEDS: LACTATED RINGERS 1,000 ML IV SCH ×4 (06:00→17:43)
[2020-07-26 06:26] LABS: Basophils % 0.2 % (0.0-0.8); Hematocrit 46.2 VOL% (35.7-47.0); Hemoglobin 14.2 GM/DL (12.0-16.0); Immature Granulocytes % 0.8 %; Immature Granulocytes Absolute 0.08 #; Lymphocytes # 1.8 10*3/uL (1.4-4.0); Lymphocytes % 17.8 % (21.3-54.2); Mean Corpuscular HGB Conc 30.7 GM/DL (32-36); Mean Corpuscular Volume 87.3 FL (87-102); Mean Platelet Volume 11.2 FL (9.6-12.0); Monocytes % 7.8 % (1.7-12.7); NRBC # 0.03 10*3/uL; Neutrophils % 73.4 % (38.7-73.9); Platelet Count 183 T/CUMM (130-400); Red Blood Count 5.29 MC/CUMM (3.8-5.5); Red Cell Distribution Width 16.4 % (9.3-17.3); White Blood Count 10.2 T/CUMM (4-12)
[2020-07-26 06:47] LABS: Albumin 2.3 G/DL (3.4-5.0); Bilirubin,Total 0.8 MG/DL (0.2-1.0); Calcium 8.3 MG/DL (8.5-10.1); Osmolality,Calculated 340.9 MOS/KG (273-304); Total Protein 7.4 G/DL (6.4-8.3)
[2020-07-26] MEDS ORDERED: MAGNESIUM HYDROXIDE SUSP 30 ML UDCUP PO PRN (07:52)
[2020-07-26] MEDS ORDERED: WARFARIN 4 MG TABLET PO ONE (07:54)
[2020-07-26 09:04] LABS: INR 2.8; PT Patient Result 28.9 SECS (9.8-11.9)
[2020-07-26] MEDS: carvediloL 6.25 MG TABLET PO SCH ×2 (09:27→21:20)
[2020-07-26] MEDS: DEXAMETHASONE 4 MG TABLET PO SCH ×3 (09:27→21:20)
[2020-07-26] MEDS: CHOLECALCIFEROL 400 UNIT TABLET PO SCH (09:28)
[2020-07-26] MEDS: OXYBUTYNIN XL 5 MG TABLET PO SCH (09:28)
[2020-07-26] MEDS: FAMOTIDINE 20 MG TABLET PO SCH ×2 (09:28→21:21)
[2020-07-26] MEDS: amLODIPine 5 MG TABLET PO SCH (09:28)
[2020-07-26] MEDS: ZINC GLUCONATE 50 MG TABLET PO SCH (09:28)
[2020-07-26] MEDS: ASCORBIC ACID 500 MG TABLET PO SCH (09:28)
[2020-07-26] MEDS: DEXTROSE 5% 1,000 ML IV SCH ×2 (10:45→23:00)
[2020-07-26] MEDS: WARFARIN 1 MG TABLET PO SCH (19:15)
[2020-07-26] MEDS: DONEPEZIL 10 MG TABLET PO SCH (21:20)
[2020-07-26] MEDS: SIMVASTATIN 20 MG TABLET PO SCH (21:20)
[2020-07-26] MEDS: MELATONIN 3 MG TABLET PO SCH (21:21)
[2020-07-27] MEDS: LACTATED RINGERS 1,000 ML IV SCH ×3 (04:16→22:08)
[2020-07-27] MEDS: DEXTROSE 5% 1,000 ML IV SCH ×3 (04:16→21:02)
[2020-07-27 06:06] LABS: INR 3.4; PT Patient Result 34.2 SECS (9.8-11.9)
[2020-07-27 06:17] LABS: Calcium 8.3 MG/DL (8.5-10.1); Osmolality,Calculated 323.9 MOS/KG (273-304); Potassium 3.6 MMOL/L (3.5-5.1)
[2020-07-27] MEDS: DEXAMETHASONE 4 MG TABLET PO SCH ×3 (09:13→21:02)
[2020-07-27] MEDS: carvediloL 6.25 MG TABLET PO SCH ×2 (09:13→21:02)
[2020-07-27] MEDS: ZINC GLUCONATE 50 MG TABLET PO SCH (09:14)
[2020-07-27] MEDS: FAMOTIDINE 20 MG TABLET PO SCH ×2 (09:14→22:09)
[2020-07-27] MEDS: OXYBUTYNIN XL 5 MG TABLET PO SCH (09:14)
[2020-07-27] MEDS: ASCORBIC ACID 500 MG TABLET PO SCH (09:14)
[2020-07-27] MEDS: amLODIPine 5 MG TABLET PO SCH (09:14)
[2020-07-27] MEDS: CHOLECALCIFEROL 400 UNIT TABLET PO SCH (09:14)
[2020-07-27] MEDS ORDERED: WARFARIN 2 MG TABLET PO SCH (18:00)
[2020-07-27] MEDS: MELATONIN 3 MG TABLET PO SCH (21:02)
[2020-07-27] MEDS: DONEPEZIL 10 MG TABLET PO SCH (21:02)
[2020-07-27] MEDS: SIMVASTATIN 20 MG TABLET PO SCH (21:02)
[2020-07-28] MEDS: DEXTROSE 5% 1,000 ML IV SCH ×4 (01:07→20:47)
[2020-07-28] MEDS: LACTATED RINGERS 1,000 ML IV SCH ×2 (01:51→11:25)
[2020-07-28] MEDS: CHOLECALCIFEROL 400 UNIT TABLET PO SCH (08:34)
[2020-07-28] MEDS: carvediloL 6.25 MG TABLET PO SCH ×2 (08:34→20:48)
[2020-07-28] MEDS: amLODIPine 5 MG TABLET PO SCH (08:34)
[2020-07-28] MEDS: ASCORBIC ACID 500 MG TABLET PO SCH (08:34)
[2020-07-28] MEDS: OXYBUTYNIN XL 5 MG TABLET PO SCH (08:34)
[2020-07-28] MEDS: DEXAMETHASONE 4 MG TABLET PO SCH ×3 (08:34→20:48)
[2020-07-28] MEDS: ZINC GLUCONATE 50 MG TABLET PO SCH (08:35)
[2020-07-28] MEDS ORDERED: ALUMINUM/MAGNES/SIMETH MAX STR 30 ML UDCUP PO PRN (11:14)
[2020-07-28] MEDS: FAMOTIDINE 20 MG TABLET PO SCH ×2 (15:23→20:48)
[2020-07-28] MEDS: WARFARIN 1 MG TABLET PO SCH (17:05)
[2020-07-28] MEDS: DONEPEZIL 10 MG TABLET PO SCH (20:47)
[2020-07-28] MEDS: SIMVASTATIN 20 MG TABLET PO SCH (20:48)
[2020-07-28] MEDS: MELATONIN 3 MG TABLET PO SCH (20:48)
[2020-07-29] MEDS: DEXTROSE 5% 1,000 ML IV SCH ×2 (06:28→16:03)
[2020-07-29 07:12] LABS: Basophils % 0.3 % (0.0-0.8); Hematocrit 39.9 VOL% (35.7-47.0); Hemoglobin 12.8 GM/DL (12.0-16.0); Immature Granulocytes % 1.4 %; Immature Granulocytes Absolute 0.15 #; Lymphocytes # 0.5 10*3/uL (1.4-4.0); Lymphocytes % 4.4 % (21.3-54.2); Mean Corpuscular HGB Conc 32.1 GM/DL (32-36); Mean Corpuscular Volume 83.1 FL (87-102); Mean Platelet Volume 12.8 FL (9.6-12.0); Monocytes % 2.1 % (1.7-12.7); Neutrophils % 91.8 % (38.7-73.9); Platelet Count 168 T/CUMM (130-400); Red Cell Distribution Width 15.2 % (9.3-17.3)
[2020-07-29 07:28] LABS: Potassium 3.7 MMOL/L (3.5-5.1)
[2020-07-29 08:37] LABS: Anisocytosis Slight; Band Neutrophils 6 % (0-10); Lymphocytes 5 % (20-55); Platelet Estimate Normal; Segmented Neutrophils 85 % (50-85); Total Cells Counted 100
[2020-07-29] MEDS: amLODIPine 5 MG TABLET PO SCH (09:12)
[2020-07-29] MEDS: FAMOTIDINE 20 MG TABLET PO SCH ×2 (09:12→20:00)
[2020-07-29] MEDS: DEXAMETHASONE 4 MG TABLET PO SCH ×3 (09:12→20:00)
[2020-07-29] MEDS: CHOLECALCIFEROL 400 UNIT TABLET PO SCH (09:12)
[2020-07-29] MEDS: ASCORBIC ACID 500 MG TABLET PO SCH (09:13)
[2020-07-29] MEDS: carvediloL 6.25 MG TABLET PO SCH ×2 (09:13→20:00)
[2020-07-29] MEDS: OXYBUTYNIN XL 5 MG TABLET PO SCH (09:13)
[2020-07-29 10:29] LABS: PT Patient Result 53.4 SECS (9.8-11.9)
[2020-07-29 10:32] LABS: INR 5.4
[2020-07-29] MEDS: ZINC GLUCONATE 50 MG TABLET PO SCH ×2 (16:03→18:24)
[2020-07-29] MEDS: MELATONIN 3 MG TABLET PO SCH (20:00)
[2020-07-29] MEDS: DONEPEZIL 10 MG TABLET PO SCH (20:00)
[2020-07-29] MEDS: SIMVASTATIN 20 MG TABLET PO SCH (20:00)
[2020-07-29] MEDS: MEGESTROL 400 MG/10 ML UDCUP PO SCH (21:14)
[2020-07-30] MEDS: DEXTROSE 5% 1,000 ML IV SCH (01:09)
[2020-07-30 05:56] LABS: Basophils % 0.2 % (0.0-0.8); Hematocrit 36.8 VOL% (35.7-47.0); Hemoglobin 11.9 GM/DL (12.0-16.0); Lymphocytes # 0.5 10*3/uL (1.4-4.0); Lymphocytes % 4.8 % (21.3-54.2); Mean Corpuscular HGB Conc 32.3 GM/DL (32-36); Mean Corpuscular Volume 82.1 FL (87-102); Mean Platelet Volume 11.3 FL (9.6-12.0); Monocytes % 1.7 % (1.7-12.7); Neutrophils % 91.3 % (38.7-73.9); Platelet Count 152 T/CUMM (130-400); Red Blood Count 4.48 MC/CUMM (3.8-5.5); Red Cell Distribution Width 15.4 % (9.3-17.3); White Blood Count 9.9 T/CUMM (4-12)
[2020-07-30 06:10] LABS: Calcium 7.9 MG/DL (8.5-10.1); Osmolality,Calculated 290.4 MOS/KG (273-304); Potassium 3.8 MMOL/L (3.5-5.1)
[2020-07-30 06:45] LABS: Band Neutrophils 2 % (0-10); Eosinophils 1 % (0-10); Hypochromasia 2+; Lymphocytes 3 % (20-55); Platelet Estimate Adequate; Segmented Neutrophils 92 % (50-85); Total Cells Counted 100
[2020-07-30] MEDS: carvediloL 6.25 MG TABLET PO SCH (10:25)
[2020-07-30] MEDS: ZINC GLUCONATE 50 MG TABLET PO SCH (10:26)
[2020-07-30] MEDS: DEXAMETHASONE 4 MG TABLET PO SCH (10:26)
[2020-07-30] MEDS: OXYBUTYNIN XL 5 MG TABLET PO SCH (10:26)
[2020-07-30] MEDS: FAMOTIDINE 20 MG TABLET PO SCH (10:26)
[2020-07-30] MEDS: MEGESTROL 400 MG/10 ML UDCUP PO SCH (10:26)
[2020-07-30] MEDS: CHOLECALCIFEROL 400 UNIT TABLET PO SCH (10:26)
[2020-07-30] MEDS: amLODIPine 5 MG TABLET PO SCH (10:26)
[2020-07-30] MEDS: ASCORBIC ACID 500 MG TABLET PO SCH (10:26)
[2020-07-30 11:49] VITALS: BP 152/67
== END 2020-07-30 14:14 | DRG 682 ==
LOC: EDBD → EDUNIT# → N.EDINP 15:24 → N.ED 15:24 → N.2E 19:56
PROVIDERS: ADMIT Family Medicine; ATTEND Family Medicine

== ENCOUNTER 2020-08-10 15:55 | Inpatient (IN) ==
[2020-08-10] MEDS ORDERED: SODIUM CHLORIDE 0.9% 1,000 ML IV STA (16:25)
[2020-08-10 18:45] LABS: Bacteria,Urine Many /HPF (Few); Bilirubin,Urine Negative (Negative); Blood, Urine Moderate mg/dL (Negative); Glucose,Urine (UA) Negative (Negative); Hyaline Casts,Urine 17 /LPF (0-3); Ketones,Urine Negative (Negative); Mucus,Urine Occasional /LPF (Occasional); Nitrite,Urine Negative (Negative); Protein,Urine Negative; RBC,Urine 14 /HPF (0-4); Squamous Epithelial Cell,Urine Occasional /HPF (0-10); Urine Appearance CLOUDY (Clear); Urine Color Amber (Yellow); Urine Specific Gravity 1.018 (1.001-1.035); WBC,Urine 1 /HPF (0-6)
[2020-08-10 19:12] LABS: Basophils % 0.2 % (0.0-0.8); Hematocrit 47.1 VOL% (35.7-47.0); Immature Granulocytes % 1.3 %; Immature Granulocytes Absolute 0.24 #; Lymphocytes # 0.7 10*3/uL (1.4-4.0); Lymphocytes % 3.7 % (21.3-54.2); Mean Corpuscular HGB Conc 29.7 GM/DL (32-36); Mean Corpuscular Volume 91.3 FL (87-102); Mean Platelet Volume 11.1 FL (9.6-12.0); Monocytes % 3.9 % (1.7-12.7); NRBC # 0.02 10*3/uL; Neutrophils % 90.9 % (38.7-73.9); Platelet Count 244 T/CUMM (130-400); Red Blood Count 5.16 MC/CUMM (3.8-5.5); Red Cell Distribution Width 20.3 % (9.3-17.3); White Blood Count 19.1 T/CUMM (4-12)
[2020-08-10 19:17] LABS: Anisocytosis Slight; Lymphocytes 5 % (20-55); Macrocytosis Slight; Platelet Estimate Adequate; Segmented Neutrophils 90 % (50-85); Total Cells Counted 100
[2020-08-10 19:18] LABS: Hypochromasia 1+
[2020-08-10 19:19] LABS: Partial Thromboplastin Time 71.2 SECS (23.9-33.8)
[2020-08-10 19:31] LABS: PT Patient Result > 178.9 SECS (9.8-11.9)
[2020-08-10 19:32] LABS: INR > 17.6
[2020-08-10 19:33] LABS: Albumin 2.1 G/DL (3.4-5.0); Bilirubin,Total 0.9 MG/DL (0.2-1.0); Calcium 8.1 MG/DL (8.5-10.1); Osmolality,Calculated 368.5 MOS/KG (273-304); Total Protein 6.4 G/DL (6.4-8.3)
[2020-08-10] MEDS ORDERED: PHYTONADIONE 10 MG/1 ML AMP SUBCUT STA (19:33)
[2020-08-10] MEDS ORDERED: GLUCAGON 1 MG VIAL IM PRN (21:14)
[2020-08-10] MEDS ORDERED: DEXTROSE 50% 25 GM/50 ML VIAL IV PRN (21:14)
[2020-08-10] MEDS ORDERED: ONDANSETRON 4 MG/2 ML VIAL IV PRN (21:14)
[2020-08-10] MEDS ORDERED: AZITHROMYCIN INJ 500 MG in SODIUM CHLORIDE 0.9% 250 ML IV STA (21:20)
[2020-08-10] MEDS ORDERED: DEXTROSE 50% 25 GM/50 ML SYRINGE IV PRN (21:20)
[2020-08-10] MEDS ORDERED: cefTRIAXone 1,000 MG in SODIUM CHLORIDE 0.9% 100 ML IV STA (21:20)
[2020-08-10] MEDS ORDERED: DEXTROSE 5% NACL 0.45% 1,000 ML IV SCH (21:30)
[2020-08-11 00:33] LABS: PT Patient Result > 178.9 SECS (9.8-11.9)
[2020-08-11 00:34] LABS: INR 29.1; Partial Thromboplastin Time 71.3 SECS (23.9-33.8)
[2020-08-11] MEDS: SODIUM CHLORIDE 0.45% 1,000 ML IV SCH ×2 (05:31→21:36)
[2020-08-11] MEDS ORDERED: INSULIN REGULAR 100 UNIT/ML SUBCUT SCH (07:30)
[2020-08-11] MEDS ORDERED: PANTOPRAZOLE 40 MG TABLET PO SCH (09:00)
[2020-08-11] MEDS: LORazepam 2 MG/1 ML VIAL IV PRN ×2 (11:44→15:22)
[2020-08-11] MEDS: MORPHINE 4 MG/1 ML VIAL IV PRN ×2 (11:45→15:22)
[2020-08-12 00:48] VITALS: BP 80/39
[2020-08-12] MEDS: LORazepam 2 MG/1 ML VIAL IV PRN (02:00)
[2020-08-12] MEDS: MORPHINE 4 MG/1 ML VIAL IV PRN (02:02)
== END 2020-08-12 02:49 | disposition expired | DRG 189 ==
LOC: EDUNIT# → N.ED 15:55 → N.EDINP 15:55 → N.2E 23:00
PROVIDERS: ADMIT Family Medicine; ATTEND Family Medicine